=== PATIENT | female | born 1930 | race Caucasian/White ===

== ENCOUNTER 2021-09-30 13:30 | Inpatient (IN) ==
--- NOTE | 2021-09-30 14:03 | ED Telehealth Note ---
Telehealth Telehealth Options: 2-way audio and video After establishing a telemedicine visit, patient was: Patient was verified with two unique identifiers Total Time Spent (minutes): 6 Impression & Plan Vomiting Note/Exam/Outcome Date of Service September 30, 2021 ED Telehealth Outcome Visit Completed ED Visit Note Chief Complaint: Vomiting HPI: This patient is an 89-year-old female that was evaluated via telehealth for several episodes of vomiting that started approximately at 4 AM this morning. The history was taken from the patient's daughter. The patient was not visually present on the telehealth visit. The patient's daughter reports that she has vomited 4 times. She reportedly has a history of partial bowel obstruction. She had a colostomy approximately 15 years ago. They are unsure if she has been having bowel movements, however she did notice a small amount of liquid stool in her depends this morning. She has not been complaining of abdominal pain. There has been no reported fever. The patient reportedly had a small bowel obstruction approximately 3 months ago. ROS: 10 system review performed and negative unless noted in HPI or below Past medical history: See below Surgical history: See below Social history: See below Physical Exam: Physical exam was not able to be performed as the patient's daughter gave her history. COURSE: History was taken via telehealth from the patient's daughter. It was advised that the patient be evaluated in the emergency department for further treatment. They agreed to come to the emergency department for further evaluation. MDM: Differential diagnosis: Partial small bowel obstruction, bowel obstruction, pancreatitis, gallbladder pathology, viral GI illness, bacterial GI illness, among others were entertained This patient is an 89-year-old female that was evaluated per her daughter through telehealth. She has reportedly been vomiting. She does have a history of partial bowel obstruction. I was concerned about a repeat bowel obstruction in addition to other etiologies. The patient also could possibly be dehydrated. For these reasons, it was advised that she come to the emergency department for evaluation. The patient's family was in agreement. DIAGNOSIS: Vomiting Past Med/Surg History Medical History Arthritis Hyperlipidemia Hypertension Surgical History S/P knee replacement S/P shoulder surgery S/P small bowel resection from SBO in approx. 1999 Family History Other No significant family history Denies family history of Colon cancer Ovarian cancer Prostate cancer Myocardial infarction Breast cancer Social History Smoking Status: Never smoker Second Hand Exposure: No; Hx Alcohol Use: No Hx Substance Use: No Preferred Language: Telugu Communication Ability: Effective Visual Impairment: Limited Hearing Ability: Use of Hearing Aid Pipeline Superintendent Required: No Beliefs That Will Affect Care: None marital status: / Current Living Situation: Family Current Living Situation Comment: Lives with children current occupational status: retired How many Children do You have: 1 Other Information That Helps Us Care for You: No Feels Safe at Home: Yes Dental Care, Regularly: Yes Physical Activity Frequency: Other Physical Activity Frequency Comment: Limited by physical condition Seatbelt Use: sometimes Assistive Devices: Cane and Walker Allergies Allergies Allergy/AdvReac Type Severity Reaction Status Date / Time No Known Drug Allergies Allergy Verified 07/25/21 13:41 Home Meds Previous Rx's Medication Instructions Recorded metoprolol tartrate 25 mg tablet 25 mg PO DAILY #90 tab 03/29/21 Results & Data (ED) Laboratory Data Result diagrams: 10/01/21 05:49 10/01/21 05:49 Discharge Plan Visit Data Chief Complaint: GI Assessment Stated Complaint: VOMITING, LOOSING APETITE, NO FULL BOWEL MOVE. ED Provider: Donald Glaser ED Midlevel Provider: Flakita Fernandez Discharge Problem: Vomiting Patient Disposition: Home - Self-Care Discharge Instructions Interventions: ED Discharge Assessment Last Done: 09/30/21 21:54
[2021-09-30] MEDS ORDERED: SODIUM CHLORIDE 0.9% 1000ML 250 ML IV ONE (15:19)
[2021-09-30] MEDS ORDERED: ONDANSETRON INJ 2 MG/ML 2 ML VIAL IV STA (15:20)
[2021-09-30 16:28] LABS: Basophils # (auto) 0.01 K/uL (0-0.2); Basophils % (auto) 0.2 %; Eosinophils # (auto) 0.03 K/uL (0-0.5); Eosinophils % (auto) 0.5 %; Hematocrit (blood only) 41.8 % (37-47); Hemoglobin 13.7 g/dL (12.0-16.0); Lymphocytes # (auto) 0.48 K/uL (1.2-3.4); Lymphocytes % (auto) 8.5 %; Mean Corpuscular Hemoglobin 31.1 pg (25-34); Mean Corpuscular Hgb Conc 32.8 g/dL (32-36); Mean Corpuscular Volume 94.8 fL (80-100); Mean Platelet Volume 11.1 fL (7.4-10.4); Monocytes # (auto) 0.38 K/uL (0.11-0.59); Monocytes % (auto) 6.7 %; Neutrophils # (auto) 4.74 K/uL (1.4-6.5); Neutrophils % (auto) 84.1 %; Platelet Count 236 K/uL (130-400); RDW Coefficient of Variation 14.4 % (11.5-14.5); RDW Standard Deviation 50.1 fL (36.4-46.3); Red Blood Count 4.41 M/uL (4.2-5.4); White Blood Count 5.64 K/uL (4.8-10.8)
[2021-09-30 17:07] LABS: Alanine Aminotransferase 17 U/L (12-78); Albumin Level 4.1 gm/dl (3.4-5.0); Aspartate Aminotransferase 19 U/L (15-37); BUN Creatinine Ratio 28.2 (10-20); Blood Urea Nitrogen 23 mg/dl (7-18); Calcium 9.3 mg/dl (8.5-10.1); Carbon Dioxide 28 mmol/L (21-32); Chloride 102 mmol/L (98-107); Est GFR (African American) 74.6 ml/min; Est GFR (Non-African American) 64.4 ml/min; Glucose 135 mg/dl (70-99); Magnesium 2.4 mg/dl (1.8-2.4); Potassium 3.9 mmol/L (3.5-5.1); Sodium 141 mmol/L (136-145)
[2021-09-30 17:12] LABS: Albumin Globulin Ratio 1.2 (0.9-2); Alkaline Phosphatase 107 U/L (45-117); Globulin 3.5 gm/dl (2.5-4.0); Phosphorus 3.8 mg/dl (2.5-4.9); Total Protein 7.6 gm/dl (6.4-8.2); Troponin I < 0.015 ng/ml (0-0.045)
[2021-09-30] MEDS ORDERED: OPTIRAY 320 100ml IV ONE (17:44)
--- NOTE | 2021-09-30 18:08 | CT Scan Report ---
CT abd pelvis IV con only CLINICAL HISTORY: vomiting hx obstruction TECHNIQUE: Helical axial images of the abdomen and pelvis were obtained and displayed. Automated dose lowering techniques and/or adjustment according to patient size were utilized for this exam. This e xam was performed with intravenous contrast. COMPARISON: None available at the time of this dictation. FINDINGS: Lower chest: Cardiomegaly is partially visualized. Liver: Unremarkable. No focal lesions are seen. Gallbladder and biliary tree: The gallbladder is contracted. No intra- or extrahepatic biliary ductal dilation. Pancreas: Unremarkable, no focal lesions. Spleen: Unremarkable. Adrenals: Unremarkable. Kidneys and ureters: There are simple cysts in the right kidney. Bladder: Unremarkable. 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 There is a heterogeneous mixed density les ion in the anterior aspect of the uterus measuring 8.0 x 6.4 cm containing components of fat and soft tissue density. Bowel: Prominent rectal stool burden is noted. Diverticulosis is seen without evidence of diverticuli tis. There are multiple distended loops of small bowel measuring up to 37 mm in diameter. No proximal transition point is seen, there is a distal transition into collapsed small bowel. Lymph nodes Retroperitoneal: Unremarkable. Mesenteric: Unremarkable. Pelvic: Unremarkable. Peritoneum: Normal Vessels: Atherosclerotic calcifications are seen. Abdominal wall: Unremarkable. Bones: Multilevel loss of height is seen in the lumbar spine. Degenerative changes are noted througho ut the visualized skeleton. IMPRESSION: 1. Small bowel obstruction in the jejunum, no evidence of closed loop obstruction. 2. Large uterine mass with fat may represent a lipoma or leiomyoma. 3. Incidental findings as above. ACT 112: Negative or not required by law. Electronically signed by: Kofi Maki M.D. 09/30/2021 6:06 PM
[2021-09-30] MEDS ORDERED: POTASSIUM CHLORIDE 10 MEQ in D5W AND 1/2NSS 1,000 ML IV SCH (19:00)
--- NOTE | 2021-09-30 19:10 | Emergency Department Note ---
ED Visit Note I have personally evaluated this patient examined her and reviewed the pertinent labs and data. I have discussed the case with Flakita Fernandez, the physician faculty i on call medical assistant and agree with the plan. Please refer to the PA note. This patient has a history of significant bowel surgery due to an infection that required a colostomy reversal, comes in after having vomiting. She did receive IV fluids as well as antiemetics and looks a lot better. Her blood work is not significantly abnormal. On CT she has a small bowel obstruction. When I go in and examine her after the medication she appears very comfortable and is not actively vomiting therefore at this point I do not believe needs an NG tube although she starts vomiting she may. I do think she needs to be admitted for bowel rest and hydration. On my exam her abdomen is without peritonitis and nontender but may be mildly distended at this point. I talked to both the patient and her daughter who is at the bedside. .
[2021-09-30] MEDS ORDERED: ONDANSETRON INJ 2 MG/ML 2 ML VIAL ONE (19:39)
--- NOTE | 2021-09-30 20:00 | History & Physical Report ---
Date of Service September 30, 2021 Assessment & Plan (1) SBO (small bowel obstruction): Plan: 89-year-old female with a past medical history of hyperlipidemia, arthritis, hypertension and possible history of small bowel obstruction admitted for management of jejunal SBO. Small bowel obstruction N.p.o. General surgery consult As evidenced on CT abdomen pelvis IV Zofran for nausea, will hold off on NG tube placement at this time. If worsening nausea will place NG tube. Hypertension Metoprolol p.o. held while n.p.o. IV metoprolol as needed for systolic blood pressure > 180 with heart rate > 60 or diastolic > 100 with heart rate > 60. Alert physician if using multiple doses. Heart murmur Per outpatient visit notes, patient deferred echocardiogram in August 07 We will order TTE in the a.m. for evaluation No signs or symptoms of CHF at this time. DVT ppx: SCDs FEN/GI: NPO Bowel regimen: N/A with SBO Code Status: DNR/DNI Dispo: med/surg. COVID19 PCR pending (2) Hypertension: (3) Cardiac murmur, unspecified: History of Present Illness Primary Care Provider: Serjio Bhakta DO Pleasantly demented 89-year-old female who was brought to the emergency department by her daughter for abdominal pain and nausea that started earlier today. History somewhat limited by patient's dementia and failure number not at bedside. Yvette states that she started having abdominal pain earlier today and has not tried anything to make it better. She states she has not been able to go to the bathroom. She does feel somewhat nauseous. She denies any fevers, chills, dysuria, frequency of urination, chest pain, respiratory difficulty. She is oriented to person and place (hospital, did not know city). Per nursing, patient has had multiple bouts of nausea and brownbilious emesis in the emergency department. Has been better after receiving Zofran. ER course significant for CT abdomen pelvis showing small bowel obstruction. Currently has a liter of normal saline running at 80 mL/h. Allergies Allergy/AdvReac Type Severity Reaction Status Date / Time No Known Drug Allergies Allergy Unknown Verified 09/30/21 15:18 Home Medications Medication Instructions Recorded Confirmed Type metoprolol tartrate 25 mg tablet 25 mg PO DAILY #90 tab 03/29/21 09/30/21 Rx Past Med/Surg History Medical History Arthritis Hyperlipidemia Hypertension Surgical History S/P knee replacement S/P shoulder surgery S/P small bowel resection from SBO in approx. 2000 Family History Other No significant family history Denies family history of Colon cancer Ovarian cancer Prostate cancer Myocardial infarction Breast cancer Social History Smoking Status: Never smoker Second Hand Exposure: No; Hx Alcohol Use: No Hx Substance Use: No Preferred Language: British Communication Ability: Effective Visual Impairment: Limited Hearing Ability: Use of Hearing Aid Lab Analyst Required: No Beliefs That Will Affect Care: None marital status: / Current Living Situation: Family Current Living Situation Comment: Lives with children current occupational status: retired How many Children do You have: 1 Other Information That Helps Us Care for You: No Feels Safe at Home: Yes Dental Care, Regularly: Yes Physical Activity Frequency: Other Physical Activity Frequency Comment: Limited by physical condition Seatbelt Use: sometimes Assistive Devices: Walker Review of Systems Constitutional: no fever, no chills, no body aches and no fatigue Respiratory: no cough and no dyspnea Cardiovascular: no chest pain, no dyspnea and no edema Gastrointestinal: + abdominal pain, + nausea, + vomiting and + constipation; no diarrhea/loose stools Physical Exam Constitutional: cooperative; no acute distress and not ill appearing Eyes: PERRL, conjunctivae normal, anicteric sclerae Neck: normal visual inspection Respiratory: normal respiratory effort and able to speak in complete sentences; no respiratory distress, no labored breathing, no retractions, no cough and no audible wheezes Auscultation: lungs clear to auscultation bilaterally; no crackles, no rales, no rhonchi and no wheezes Cardiovascular: Rate/Rhythm: regular rate and regular rhythm Heart Sounds: normal S1, normal S2 and + murmur (Blowing harsh systolic murmur heard best at left lower sternal border); no gallop and no cardiac rub Extremities: normal capillary refill; no calf tenderness, no pedal edema and no edema Gastrointestinal (Abdomen): Inspection/Auscultation: + abdomen distended; + abdomen abnormal to inspection, + abnormal bowel sounds (No bowel sounds auscultated) and no abdominal edema Percussion/Palpation: + abdomen tender, + guarding (Involuntary guarding) and abdomen soft; abdomen not rigid and no abdominal mass Musculoskeletal: no cyanosis or clubbing, extremities motor strength 5/5 Skin: no rashes, warm and dry Neurologic: PERRL, EOMI, accommodation nl, no face palsy, no dysarthria Speech / Cognition: normal speech Motor/Sensory: no tremor Psychiatric: Orientation: alert, oriented to person and oriented to place; + not oriented to time Results & Data Results & Data ([facility]) Vital Signs (Past 12 Hours) Vital Signs Temp Pulse Pulse Resp BP BP Pulse Ox 09/30/21 18:27 90 17 145/70 H 95 09/30/21 17:45 87 16 145/70 H 99 09/30/21 14:51 36.3 C L 112 H 18 144/72 H 96 Laboratory Results Laboratory Results WBC 5.64 K/uL (4.8-10.8) 09/30/21 16:15 RBC 4.41 M/uL (4.2-5.4) 09/30/21 16:15 Hgb 13.7 g/dL (12.0-16.0) 09/30/21 16:15 Hct 41.8 % (37-47) 09/30/21 16:15 MCV 94.8 fL (80-100) 09/30/21 16:15 MCH 31.1 pg (25-34) 09/30/21 16:15 MCHC 32.8 g/dL (32-36) 09/30/21 16:15 RDW Std Deviation 50.1 fL (36.4-46.3) H 09/30/21 16:15 RDW Coeff of Jany 14.4 % (11.5-14.5) 09/30/21 16:15 Plt Count 236 K/uL (130-400) 09/30/21 16:15 MPV 11.1 fL (7.4-10.4) H 09/30/21 16:15 Immature Gran % (Auto) 0.0 % 09/30/21 16:15 Neut % (Auto) 84.1 % 09/30/21 16:15 Lymph % (Auto) 8.5 % 09/30/21 16:15 [place] % (Auto) 6.7 % 09/30/21 16:15 Eos % (Auto) 0.5 % 09/30/21 16:15 Baso % (Auto) 0.2 % 09/30/21 16:15 Neut # (Auto) 4.74 K/uL (1.4-6.5) 09/30/21 16:15 Lymph # (Auto) 0.48 K/uL (1.2-3.4) L 09/30/21 16:15 [place] # (Auto) 0.38 K/uL (0.11-0.59) 09/30/21 16:15 Eos # (Auto) 0.03 K/uL (0-0.5) 09/30/21 16:15 Baso # (Auto) 0.01 K/uL (0-0.2) 09/30/21 16:15 Immature Gran # (Auto) 0.00 K/uL (0.00-0.02) 09/30/21 16:15 Sodium 141 mmol/L (136-145) 09/30/21 16:15 Potassium 3.9 mmol/L (3.5-5.1) 09/30/21 16:15 Chloride 102 mmol/L (98-107) 09/30/21 16:15 Carbon Dioxide 28 mmol/L (21-32) 09/30/21 16:15 Anion Gap 11.0 (3-11) 09/30/21 16:15 BUN 23 mg/dl (7-18) H 09/30/21 16:15 Creatinine 0.81 mg/dl (0.6-1.2) 09/30/21 16:15 Est Cr Clr Drug Dosing Not Reportable 09/30/21 16:15 Est GFR ( Amer) 74.6 ml/min 09/30/21 16:15 Est GFR (Non-Af Amer) 64.4 ml/min 09/30/21 16:15 BUN/Creatinine Ratio 28.2 (10-20) H 09/30/21 16:15 Glucose 135 mg/dl (70-99) H 09/30/21 16:15 Lactate 1.2 mmol/L (0.4-2.0) 09/30/21 16:15 Calcium 9.3 mg/dl (8.5-10.1) 09/30/21 16:15 Phosphorus 3.8 mg/dl (2.5-4.9) 09/30/21 16:15 Magnesium 2.4 mg/dl (1.8-2.4) 09/30/21 16:15 Total Bilirubin 1.0 mg/dl (0.2-1) 09/30/21 16:15 AST 19 U/L (15-37) 09/30/21 16:15 ALT 17 U/L (12-78) 09/30/21 16:15 Alkaline Phosphatase 107 U/L (45-117) 09/30/21 16:15 Troponin I < 0.015 ng/ml (0-0.045) 09/30/21 16:15 Total Protein 7.6 gm/dl (6.4-8.2) 09/30/21 16:15 Albumin 4.1 gm/dl (3.4-5.0) 09/30/21 16:15 Globulin 3.5 gm/dl (2.5-4.0) 09/30/21 16:15 Albumin/Globulin Ratio 1.2 (0.9-2) 09/30/21 16:15 COVID-19 Eval Order Covid19 at [facility] 09/30/21 Unknown Impressions Abdomen/Pelvis CT 09/30/21 15:19 CT abd pelvis IV con only CLINICAL HISTORY: vomiting hx obstruction TECHNIQUE: Helical axial images of the abdomen and pelvis were obtained and displayed. Automated dose lowering techniques and/or adjustment according to patient size were utilized for this exam. This exam was performed with intravenous contrast. COMPARISON: None available at the time of this dictation. FINDINGS: Lower chest: Cardiomegaly is partially visualized. Liver: Unremarkable. No focal lesions are seen. Gallbladder and biliary tree: The gallbladder is contracted. No intra- or extrahepatic biliary ductal dilation. Pancreas: Unremarkable, no focal lesions. Spleen: Unremarkable. Adrenals: Unremarkable. Kidneys and ureters: There are simple cysts in the right kidney. Bladder: Unremarkable. 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 There is a heterogeneous mixed density lesion in the anterior aspect of the uterus measuring 8.0 x 6.4 cm containing components of fat and soft tissue density. Bowel: Prominent rectal stool burden is noted. Diverticulosis is seen without evidence of diverticulitis. There are multiple distended loops of small bowel measuring up to 37 mm in diameter. No proximal transition point is seen, there is a distal transition into collapsed small bowel. Lymph nodes Retroperitoneal: Unremarkable. Mesenteric: Unremarkable. Pelvic: Unremarkable. Peritoneum: Normal Vessels: Atherosclerotic calcifications are seen. Abdominal wall: Unremarkable. Bones: Multilevel loss of height is seen in the lumbar spine. Degenerative changes are noted throughout the visualized skeleton. IMPRESSION: 1. Small bowel obstruction in the jejunum, no evidence of closed loop obstruction. 2. Large uterine mass with fat may represent a lipoma or leiomyoma. 3. Incidental findings as above. ACT 112: Negative or not required by law. Electronically signed by: Kofi Maki M.D. 09/30/2021 6:06 PM Supervising Physician Co-Signing Physician Notes Attending addendum: I have physically seen this patient, have supervised the medical residents activities, and agree with the H&P unless as otherwise noted. Assessment and Plan: Small bowel obstruction- N.p.o. NSS + KCl 20 mEq at 100 mils per hour Zofran 4 mg IV every 6 hours as needed Famotidine 20 mg IV every 12 hours Zosyn 4.5 g IV every 8 hours Acetaminophen 1 g IV every 8 hours as needed mild pain or fever Hypertension- Hold oral metoprolol Lopressor 5 mg IV every 4 hours as needed as noted Remaining orders and notations as noted Resident Activity Tracking Resident Involvement: Resident Care Provided Care Provided: Adult Hospital Medicine
[2021-09-30] MEDS: SODIUM CHLORIDE 0.9% 1000ML 1,000 ML IV SCH (22:47)
[2021-09-30] MEDS ORDERED: ONDANSETRON INJ 2 MG/ML 2 ML VIAL IV PRN (22:50)
[2021-09-30] MEDS ORDERED: ACETAMINOPHEN 325 MG TAB PO PRN (22:50)
[2021-09-30 23:29] LABS: Appearance Urine Clear (Clear); Bacteria Urine Automated Negative (Negative); Bilirubin Urine Negative (Negative); Blood Urine 2+ (Negative); Color Urine Yellow; Glucose Urine UA Negative (Negative); Ketones Urine 1+ (Negative); Leukocyte Esterase Urine Negative (Negative); Nitrite Urine Negative (Negative); Protein Urine Trace (Negative); Specific Gravity Urine > 1.045 (1.000-1.030); Urobilinogen Urine Negative (Negative)
[2021-10-01 06:07] LABS: Basophils # (auto) 0.01 K/uL (0-0.2); Basophils % (auto) 0.2 %; Eosinophils # (auto) 0.03 K/uL (0-0.5); Eosinophils % (auto) 0.5 %; Hematocrit (blood only) 36.9 % (37-47); Hemoglobin 11.7 g/dL (12.0-16.0); Lymphocytes % (auto) 10.5 %; Mean Corpuscular Hemoglobin 30.5 pg (25-34); Mean Corpuscular Hgb Conc 31.7 g/dL (32-36); Mean Corpuscular Volume 96.1 fL (80-100); Mean Platelet Volume 10.6 fL (7.4-10.4); Monocytes # (auto) 0.49 K/uL (0.11-0.59); Monocytes % (auto) 8.6 %; Neutrophils # (auto) 4.59 K/uL (1.4-6.5); Neutrophils % (auto) 80.2 %; Platelet Count 210 K/uL (130-400); RDW Coefficient of Variation 14.6 % (11.5-14.5); RDW Standard Deviation 51.3 fL (36.4-46.3); Red Blood Count 3.84 M/uL (4.2-5.4); White Blood Count 5.72 K/uL (4.8-10.8)
[2021-10-01 06:36] LABS: BUN Creatinine Ratio 23.1 (10-20); Calcium 8.7 mg/dl (8.5-10.1); Est GFR (African American) 73.5 ml/min; Est GFR (Non-African American) 63.4 ml/min; Potassium 3.4 mmol/L (3.5-5.1)
--- NOTE | 2021-10-01 07:11 | Hospitalist Progress Note ---
Date of Service October 01, 2021 Assessment & Plan (1) SBO (small bowel obstruction): Plan: 89-year-old female with a past medical history of hyperlipidemia, arthritis, hypertension and possible history of small bowel obstruction admitted for management of jejunal SBO. Small bowel obstruction N.p.o. General surgery consult As evidenced on CT abdomen pelvis IV Zofran for nausea, will hold off on NG tube placement at this time. If worsening nausea will place NG tube. Hypertension Metoprolol p.o. held while n.p.o. IV metoprolol as needed for systolic blood pressure > 180 with heart rate > 60 or diastolic > 100 with heart rate > 60. Alert physician if using multiple doses. Heart murmur Per outpatient visit notes, patient deferred echocardiogram in August 07 We will order TTE in the a.m. for evaluation No signs or symptoms of CHF at this time. DVT ppx: SCDs FEN/GI: NPO Bowel regimen: N/A with SBO Code Status: DNR/DNI Dispo: med/surg. COVID19 PCR pending (2) Hypertension: (3) Cardiac murmur, unspecified: Admission and Anticipated Discharge Date Admission Date: September 30, 2021 Subjective Does not remember last BM. Abd pain has resolved completely. No n/v. Denies abd surgeries. Lives at home. Was at baseline until yesterday. Review of Systems Review of Systems: All systems reviewed & are unremarkable except as noted in HPI & below Constitutional: Denies fever, chills Eyes: Denies blurry vision, vision changes ENT: Denies sore throat, sinus pain Cardiovascular: Denies chest pain, palpitations Respiratory: Denies shortness of breath Gastrointestinal: Denies abdominal pain, nausea, vomiting, constipation, diarrhea Genitourinary: Denies urinary symptoms including dysuria Musculoskeletal: Denies weakness, muscle aches/pain, joint aches/pain Neurological: Denies headache, numbness, tingling, focal weakness Physical Exam Physical Exam: General: A&O to person and place, but not context. NAD. Cooperative. HEENT: Atraumatic, normocephalic. EOMI Pulm: Trace insp crackles at bases, worse on L. Otherwise CTAB. No respiratory distress. Cardiac: RRR, -mrg. Radial pulses intact and symmetrical. Abdominal: Nontender, nondistended, soft. + bruit heard at abd midline. Integ: R arm wrapped in soft dressing. Denies fall/injury. Results & Data Results & Data ([facility]) Vital Signs (Past 12 Hours) Vital Signs Intermittent HR to 90s. afeb. BPs appropriate. 94 on RA. Temp Pulse Pulse Resp BP Pulse Ox 09/30/21 22:19 36.7 C 96 H 16 133/74 94 09/30/21 21:54 86 19 94 09/30/21 20:01 36.7 C 92 H 18 137/72 96 Temp Pulse Resp BP Pulse Ox 37.0 C 99 H 16 119/64 93 10/01/21 07:17 10/01/21 07:17 10/01/21 07:17 10/01/21 07:17 10/01/21 07:17 Laboratory Results no leukocytosis. Hb 13.7->11.7. K 3.4 Na 141. Cr 0.82. UA at admission sg >1.045. trace protein. 1+ ketone. 2+ blood. 10-20 epi cells. 09/30 ct abd. 1. Small bowel obstruction in the jejunum, no evidence of closed loop obstruction. 2. Large uterine mass with fat may represent a lipoma or leiomyoma. 09/30 ecg 10/01/21 05:49 10/01/21 05:49 Diagnostic Findings Abdomen/Pelvis CT 09/30/21 15:19 CT abd pelvis IV con only CLINICAL HISTORY: vomiting hx obstruction TECHNIQUE: Helical axial images of the abdomen and pelvis were obtained and displayed. Automated dose lowering techniques and/or adjustment according to patient size were utilized for this exam. This exam was performed with intravenous contrast. COMPARISON: None available at the time of this dictation. FINDINGS: Lower chest: Cardiomegaly is partially visualized. Liver: Unremarkable. No focal lesions are seen. Gallbladder and biliary tree: The gallbladder is contracted. No intra- or extrahepatic biliary ductal dilation. Pancreas: Unremarkable, no focal lesions. Spleen: Unremarkable. Adrenals: Unremarkable. Kidneys and ureters: There are simple cysts in the right kidney. Bladder: Unremarkable. 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 There is a heterogeneous mixed density lesion in the anterior aspect of the uterus measuring 8.0 x 6.4 cm containing components of fat and soft tissue density. Bowel: Prominent rectal stool burden is noted. Diverticulosis is seen without evidence of diverticulitis. There are multiple distended loops of small bowel measuring up to 37 mm in diameter. No proximal transition point is seen, there is a distal transition into collapsed small bowel. Lymph nodes Retroperitoneal: Unremarkable. Mesenteric: Unremarkable. Pelvic: Unremarkable. Peritoneum: Normal Vessels: Atherosclerotic calcifications are seen. Abdominal wall: Unremarkable. Bones: Multilevel loss of height is seen in the lumbar spine. Degenerative changes are noted throughout the visualized skeleton. IMPRESSION: 1. Small bowel obstruction in the jejunum, no evidence of closed loop obstruction. 2. Large uterine mass with fat may represent a lipoma or leiomyoma. 3. Incidental findings as above. ACT 112: Negative or not required by law. Electronically signed by: Kofi Maki M.D. 09/30/2021 6:06 PM KUB X-Ray 10/01/21 13:32 KUB CLINICAL HISTORY: Small bowel obstruction. FINDINGS: An AP supine abdominal radiograph is correlated with abdominal CT dated 09/30/2021. There is no radiographic evidence of bowel obstruction. Mild fecal retention is seen throughout the colon. No evidence of intraperitoneal free air is seen on this supine image. Excreted IV contrast fills the bladder. 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 The skeletal structures are osteopenic. IMPRESSION: There is no radiographic evidence of bowel obstruction. The obstruction seen by CT is not apparent on x-ray. Electronically signed by: Manuelito Sarabia M.D. 10/01/2021 2:44 PM Resident Activity Tracking Resident Involvement: Resident Care Provided Care Provided: Adult [facility]
[2021-10-01] MEDS: METOPROLOL TARTRATE 25 MG TAB PO SCH (09:48)
[2021-10-01] MEDS: SODIUM CHLORIDE 0.9% 1000ML 1,000 ML IV SCH (12:15)
--- NOTE | 2021-10-01 12:21 | Surgery Consultation ---
Date of Consultation October 01, 2021 Assessment & Plan (1) SBO (small bowel obstruction): 89 year-old female with SBO at level of jejunum on CT scan. 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 Likely SBO secondary to adhesions. - abdomen is soft, nondistended, nontender - no leukocytosis Plan: Continue conservative management: NPO for bowel rest, IV fluids, pain management as needed continue medical management will follow along Dr. Bhakta has seen and examined pt, agrees with above. History of Present Illness Reason for Consultation: SBO Requesting Physician: Nirmala Schaffer MD Attending Physician: Nirmala Schaffer MD History of Present Illness Yvette is a 89 year-old female who presented to emergency department yesterday with complaint of abdominal pain with associated vomiting. History is limited given dementia and no family is present in room. History obtained from chart. She has a history of cardiac murmur, hypertension, arthritis, and hyperlipidemia. She does have a midline laparotomy scar from possible small b owel resection in 1999. Per record she had nausea and brown-bilious emesis in the ED. CT scan showed dilated small bowel at jejunum. No leukocytosis and lactic acid normal at 1.2 Yvette states she is feeling well. Denies of any nausea, vomiting, or abdominal pain. Not passing any gas or bowel movements. Allergies Allergy/AdvReac Type Severity Reaction Status Date / Time No Known Drug Allergies Allergy Unknown Verified 09/30/21 15:18 Home Medications Medication Instructions Recorded Confirmed Type metoprolol tartrate 25 mg tablet 25 mg PO DAILY #90 tab 03/29/21 09/30/21 Rx Patient History Medical History Arthritis Hyperlipidemia Hypertension Surgical History S/P knee replacement S/P shoulder surgery S/P small bowel resection from SBO in approx. 1999 Family History Other No significant family history Denies family history of Colon cancer Ovarian cancer Prostate cancer Myocardial infarction Breast cancer Social History Smoking Status: Never smoker Second Hand Exposure: No; Hx Alcohol Use: No Hx Substance Use: No Preferred Language: Mauritanian Communication Ability: Effective Visual Impairment: Limited Hearing Ability: Use of Hearing Aid Youth Specialist Required: No Beliefs That Will Affect Care: None marital status: / Current Living Situation: Family Current Living Situation Comment: Lives with children current occupational status: retired How many Children do You have: 1 Other Information That Helps Us Care for You: No Feels Safe at Home: Yes Dental Care, Regularly: Yes Physical Activity Frequency: Other Physical Activity Frequency Comment: Limited by physical condition Seatbelt Use: sometimes Assistive Devices: Cane and Walker Review of Systems Review of Systems: Unobtainable due to cognitive status Physical Exam Constitutional: WD/WN, vitals as above no acute distress and not ill appearing Respiratory: normal respiratory effort, lungs clear to auscultation Cardiovascular: Rate/Rhythm: regular rate and regular rhythm Heart Sounds: + murmur Gastrointestinal (Abdomen): Inspection/Auscultation: abdomen normal to inspection and + abdominal surgical scar (midline laparotomy scar); abdomen not distended Percussion/Palpation: abdomen soft; abdomen nontender, no guarding and abdomen not rigid Skin: no rashes, warm and dry Psychiatric: Orientation: alert Results & Data ([facility]) Vital Signs (Past 12 Hours) Vital Signs Temp Pulse Resp BP Pulse Ox 10/01/21 09:45 98 H 112/61 10/01/21 07:17 37.0 C 99 H 16 119/64 93 Laboratory Results 10/01/21 10/01/21 09/30/21 Range/Units 05:49 05:49 Unknown WBC 5.72 (4.8-10.8) K/uL RBC 3.84 L (4.2-5.4) M/uL Hgb 11.7 L (12.0-16.0) g/dL Hct 36.9 L (37-47) % MCV 96.1 (80-100) fL MCH 30.5 (25-34) pg MCHC 31.7 L (32-36) g/dL RDW Std Deviation 51.3 H (36.4-46.3) fL RDW Coeff of Jany 14.6 H (11.5-14.5) % Plt Count 210 (130-400) K/uL MPV 10.6 H (7.4-10.4) fL Immature Gran % (Auto) 0.0 % Neut % (Auto) 80.2 % Lymph % (Auto) 10.5 % [place] % (Auto) 8.6 % Eos % (Auto) 0.5 % Baso % (Auto) 0.2 % Neut # (Auto) 4.59 (1.4-6.5) K/uL Lymph # (Auto) 0.60 L (1.2-3.4) K/uL [place] # (Auto) 0.49 (0.11-0.59) K/uL Eos # (Auto) 0.03 (0-0.5) K/uL Baso # (Auto) 0.01 (0-0.2) K/uL Immature Gran # (Auto) 0.00 (0.00-0.02) K/uL Sodium 141 (136-145) mmol/L Potassium 3.4 L (3.5-5.1) mmol/L Chloride 108 H (98-107) mmol/L Carbon Dioxide 28 (21-32) mmol/L Anion Gap 5.0 (3-11) BUN 19 H (7-18) mg/dl Creatinine 0.82 (0.6-1.2) mg/dl Est Cr Clr Drug Dosing 30.0 Est GFR ( Amer) 73.5 ml/min Est GFR (Non-Af Amer) 63.4 ml/min BUN/Creatinine Ratio 23.1 H (10-20) Glucose 123 H (70-99) mg/dl Lactate (0.4-2.0) mmol/L Calcium 8.7 (8.5-10.1) mg/dl Phosphorus (2.5-4.9) mg/dl Magnesium (1.8-2.4) mg/dl Total Bilirubin (0.2-1) mg/dl AST (15-37) U/L ALT (12-78) U/L Alkaline Phosphatase (45-117) U/L Troponin I (0-0.045) ng/ml Total Protein (6.4-8.2) gm/dl Albumin (3.4-5.0) gm/dl Globulin (2.5-4.0) gm/dl Albumin/Globulin Ratio (0.9-2) Urine Color Urine Appearance (Clear) Urine pH (4.5-7.5) Ur Specific [place] (1.000-1.030) Urine Protein (Negative) Urine Glucose (UA) (Negative) Urine Ketones (Negative) Urine Blood (Negative) Urine Nitrite (Negative) Urine Bilirubin (Negative) Urine Urobilinogen (Negative) Ur Leukocyte Esterase (Negative) Urine WBC (Auto) (0-5) /hpf Urine RBC (Auto) (0-4) /hpf U Hyaline Cast (Auto) (0-5) /lpf U Epithel Cells (Auto) (0-5) /lpf Urine Bacteria (Auto) (Negative) COVID-19 Eval Order SARS-CoV-2 (PCR) NEGATIVE (Negative) 09/30/21 09/30/21 09/30/21 Range/Units Unknown 20:55 16:15 WBC (4.8-10.8) K/uL RBC (4.2-5.4) M/uL Hgb (12.0-16.0) g/dL Hct (37-47) % MCV (80-100) fL MCH (25-34) pg MCHC (32-36) g/dL RDW Std Deviation (36.4-46.3) fL RDW Coeff of Jany (11.5-14.5) % Plt Count (130-400) K/uL MPV (7.4-10.4) fL Immature Gran % (Auto) % Neut % (Auto) % Lymph % (Auto) % [place] % (Auto) % Eos % (Auto) % Baso % (Auto) % Neut # (Auto) (1.4-6.5) K/uL Lymph # (Auto) (1.2-3.4) K/uL [place] # (Auto) (0.11-0.59) K/uL Eos # (Auto) (0-0.5) K/uL Baso # (Auto) (0-0.2) K/uL Immature Gran # (Auto) (0.00-0.02) K/uL Sodium (136-145) mmol/L Potassium (3.5-5.1) mmol/L Chloride (98-107) mmol/L Carbon Dioxide (21-32) mmol/L Anion Gap (3-11) BUN (7-18) mg/dl Creatinine (0.6-1.2) mg/dl Est Cr Clr Drug Dosing Est GFR ( Amer) ml/min Est GFR (Non-Af Amer) ml/min BUN/Creatinine Ratio (10-20) Glucose (70-99) mg/dl Lactate 1.2 (0.4-2.0) mmol/L Calcium (8.5-10.1) mg/dl Phosphorus (2.5-4.9) mg/dl Magnesium (1.8-2.4) mg/dl Total Bilirubin (0.2-1) mg/dl AST (15-37) U/L ALT (12-78) U/L Alkaline Phosphatase (45-117) U/L Troponin I (0-0.045) ng/ml Total Protein (6.4-8.2) gm/dl Albumin (3.4-5.0) gm/dl Globulin (2.5-4.0) gm/dl Albumin/Globulin Ratio (0.9-2) Urine Color Yellow Urine Appearance Clear (Clear) Urine pH 7.0 (4.5-7.5) Ur Specific [place] > 1.045 H (1.000-1.030) Urine Protein Trace H (Negative) Urine Glucose (UA) Negative (Negative) Urine Ketones 1+ H (Negative) Urine Blood 2+ H (Negative) Urine Nitrite Negative (Negative) Urine Bilirubin Negative (Negative) Urine Urobilinogen Negative (Negative) Ur Leukocyte Esterase Negative (Negative) Urine WBC (Auto) 1-5 (0-5) /hpf Urine RBC (Auto) 10-30 H (0-4) /hpf U Hyaline Cast (Auto) 1-5 (0-5) /lpf U Epithel Cells (Auto) 10-20 H (0-5) /lpf Urine Bacteria (Auto) Negative (Negative) COVID-19 Eval Order Covid19 at [facility] SARS-CoV-2 (PCR) (Negative) 09/30/21 09/30/21 Range/Units 16:15 16:15 WBC 5.64 (4.8-10.8) K/uL RBC 4.41 (4.2-5.4) M/uL Hgb 13.7 (12.0-16.0) g/dL Hct 41.8 (37-47) % MCV 94.8 (80-100) fL MCH 31.1 (25-34) pg MCHC 32.8 (32-36) g/dL RDW Std Deviation 50.1 H (36.4-46.3) fL RDW Coeff of Jany 14.4 (11.5-14.5) % Plt Count 236 (130-400) K/uL MPV 11.1 H (7.4-10.4) fL Immature Gran % (Auto) 0.0 % Neut % (Auto) 84.1 % Lymph % (Auto) 8.5 % [place] % (Auto) 6.7 % Eos % (Auto) 0.5 % Baso % (Auto) 0.2 % Neut # (Auto) 4.74 (1.4-6.5) K/uL Lymph # (Auto) 0.48 L (1.2-3.4) K/uL [place] # (Auto) 0.38 (0.11-0.59) K/uL Eos # (Auto) 0.03 (0-0.5) K/uL Baso # (Auto) 0.01 (0-0.2) K/uL Immature Gran # (Auto) 0.00 (0.00-0.02) K/uL Sodium 141 (136-145) mmol/L Potassium 3.9 (3.5-5.1) mmol/L Chloride 102 (98-107) mmol/L Carbon Dioxide 28 (21-32) mmol/L Anion Gap 11.0 (3-11) BUN 23 H (7-18) mg/dl Creatinine 0.81 (0.6-1.2) mg/dl Est Cr Clr Drug Dosing Not Reportable Est GFR ( Amer) 74.6 ml/min Est GFR (Non-Af Amer) 64.4 ml/min BUN/Creatinine Ratio 28.2 H (10-20) Glucose 135 H (70-99) mg/dl Lactate (0.4-2.0) mmol/L Calcium 9.3 (8.5-10.1) mg/dl Phosphorus 3.8 (2.5-4.9) mg/dl Magnesium 2.4 (1.8-2.4) mg/dl Total Bilirubin 1.0 (0.2-1) mg/dl AST 19 (15-37) U/L ALT 17 (12-78) U/L Alkaline Phosphatase 107 (45-117) U/L Troponin I < 0.015 (0-0.045) ng/ml Total Protein 7.6 (6.4-8.2) gm/dl Albumin 4.1 (3.4-5.0) gm/dl Globulin 3.5 (2.5-4.0) gm/dl Albumin/Globulin Ratio 1.2 (0.9-2) Urine Color Urine Appearance (Clear) Urine pH (4.5-7.5) Ur Specific [place] (1.000-1.030) Urine Protein (Negative) Urine Glucose (UA) (Negative) Urine Ketones (Negative) Urine Blood (Negative) Urine Nitrite (Negative) Urine Bilirubin (Negative) Urine Urobilinogen (Negative) Ur Leukocyte Esterase (Negative) Urine WBC (Auto) (0-5) /hpf Urine RBC (Auto) (0-4) /hpf U Hyaline Cast (Auto) (0-5) /lpf U Epithel Cells (Auto) (0-5) /lpf Urine Bacteria (Auto) (Negative) COVID-19 Eval Order SARS-CoV-2 (PCR) (Negative) Diagnostic Findings CT abd pelvis IV con only CLINICAL HISTORY: vomiting hx obstruction TECHNIQUE: Helical axial images of the abdomen and pelvis were obtained and displayed. Automated dose lowering techniques and/or adjustment according to patient size were utilized for this exam. This exam was performed with intravenous contrast. COMPARISON: None available at the time of this dictation. FINDINGS: Lower chest: Cardiomegaly is partially visualized. Liver: Unremarkable. No focal lesions are seen. Gallbladder and biliary tree: The gallbladder is contracted. No intra- or extrahepatic biliary ductal dilation. Pancreas: Unremarkable, no focal lesions. Spleen: Unremarkable. Adrenals: Unremarkable. Kidneys and ureters: There are simple cysts in the right kidney. Bladder: Unremarkable. 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 There is a heterogeneous mixed density lesion in the anterior aspect of the uterus measuring 8.0 x 6.4 cm containing components of fat and soft tissue density. Bowel: Prominent rectal stool burden is noted. Diverticulosis is seen without evidence of diverticulitis. There are multiple distended loops of small bowel measuring up to 37 mm in diameter. No proximal transition point is seen, there is a distal transition into collapsed small bowel. Lymph nodes Retroperitoneal: Unremarkable. Mesenteric: Unremarkable. Pelvic: Unremarkable. Peritoneum: Normal Vessels: Atherosclerotic calcifications are seen. Abdominal wall: Unremarkable. Bones: Multilevel loss of height is seen in the lumbar spine. Degenerative changes are noted throughout the visualized skeleton. IMPRESSION: 1. Small bowel obstruction in the jejunum, no evidence of closed loop obstruction. 2. Large uterine mass with fat may represent a lipoma or leiomyoma. 3. Incidental findings as above.
--- NOTE | 2021-10-01 13:38 | XCELERA ---
[id number]
--- NOTE | 2021-10-01 14:45 | XRay Report ---
KUB CLINICAL HISTORY: Small bowel obstruction. FINDINGS: An AP supine abdominal radiograph is correlated with abdominal CT dated 09/30/2021. There i s no radiographic evidence of bowel obstruction. Mild fecal retention is seen throughout the colon. N o evidence of intraperitoneal free air is seen on this supine image. Excreted IV contrast fills the b ladder. 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 The skeletal structures are osteopenic. IMPRESSION: There is no radiographic evidence of bowel obstruction. The obstruction seen by CT is not apparent on x-ray. Electronically signed by: Manuelito Sarabia M.D. 10/01/2021 2:44 PM
--- NOTE | 2021-10-01 15:49 | Hospitalist Progress Note ---
Date of Service October 01, 2021 Assessment & Plan (1) SBO (small bowel obstruction): Plan: Yvette is a 89F with a history of small bowel resection who was admitied for jejunal SBO confirmed by CT scan. Her symptoms have resolved but she has not passed flactulance or had a bowel movement yet. SBO - Likely secondary to adhesions - Confirmed by CT scan on 09/30 - KUB XR on 10/01 demonstrated no SBO - abdomen is soft, nondistended, nontender - no leukocytosis - General surgery consulted, no surgical intervention at this time - Continue conservative management: NPO for bowel rest, IV fluids, pain management as needed IV Zofran for nausea, will hold off on NG tube placement at this time. If worsening nausea will place NG tube. - Monitor electrolytes and fluids Hypertension Continue metoprolol at home regimen Heart murmur Per outpatient visit notes, patient deferred echocardiogram in 07/2021 ECHO 10/01 demonstrated EF >70%, mild to moderate LVH, severe aortic stenosis, severe mitral regurgitation, with severe dilation of left atrium No signs or symptoms of CHF at this time. DVT ppx: SCDS FEN/GI: NPO Bowel regimen: N/A with SBO Code Status: DNR/DNI Dispo: med/surg (2) Cardiac murmur, unspecified: (3) Hypertension: Admission and Anticipated Discharge Date Admission Date: September 30, 2021 Supervising Physician Co-Signing Physician Notes Medical Student Supervision Note: I was personally present during medical student patient encounter and independently interviewed and examined the patient and verified the gil history and physical, reviewed labs and image studies, discussed the case with Isi Kincaid and agree with the findings and care plan. Subjective Yvette is a 89F with a history of small bowel resection 20 years ago who presented to the ED yesterday for abdominal pain and nausea; CT abd/pelvis found small bowel obstruction. She is unsure of her last bowel movement and has not had one or passed flatulance. Her abdominal pain, nausea, and emesis have resolved and she is feeling well. Review of Systems Constitutional: no fever, no chills, no body aches and no fatigue Respiratory: no cough and no dyspnea Cardiovascular: no chest pain, no dyspnea and no edema Gastrointestinal: no abdominal pain, no nausea, no vomiting and no diarrhea/loose stools Genitourinary: no dysuria Physical Exam Constitutional: cooperative; no acute distress and not ill appearing Eyes: + anicteric sclerae Respiratory: normal respiratory effort, lungs clear to auscultation Normal respiratory effort. Trace insp crackles at bases, worse on L, otherwise lungs clear to auscultation. Cardiovascular: Rate/Rhythm: regular rate and regular rhythm Heart Sounds: normal S1, normal S2 and + murmur (systolic, best heard at left lower sternal border); no gallop and no cardiac rub Extremities: no edema Gastrointestinal (Abdomen): Inspection/Auscultation: abdomen normal to inspection and + abdominal surgical scar (midline laparotomy scar); abdomen not distended, + abnormal bowel sounds (No bowel sounds auscultated) and no abdominal edema Percussion/Palpation: abdomen soft; abdomen nontender and no guarding + bruit heard at abd midline Skin: no rashes, warm and dry R arm wrapped in soft dressing Neurologic: Speech / Cognition: normal speech Psychiatric: Orientation: alert, oriented to person and oriented to place; + not oriented to time Results & Data Results & Data ([facility]) Vital Signs (Past 12 Hours) Vital Signs Temp Pulse Resp BP Pulse Ox 10/01/21 09:45 98 H 112/61 10/01/21 07:17 37.0 C 99 H 16 119/64 93 Laboratory Results 10/01/21 10/01/21 09/30/21 Range/Units 05:49 05:49 Unknown WBC 5.72 (4.8-10.8) K/uL RBC 3.84 L (4.2-5.4) M/uL Hgb 11.7 L (12.0-16.0) g/dL Hct 36.9 L (37-47) % MCV 96.1 (80-100) fL MCH 30.5 (25-34) pg MCHC 31.7 L (32-36) g/dL RDW Std Deviation 51.3 H (36.4-46.3) fL RDW Coeff of Jany 14.6 H (11.5-14.5) % Plt Count 210 (130-400) K/uL MPV 10.6 H (7.4-10.4) fL Immature Gran % (Auto) 0.0 % Neut % (Auto) 80.2 % Lymph % (Auto) 10.5 % [place] % (Auto) 8.6 % Eos % (Auto) 0.5 % Baso % (Auto) 0.2 % Neut # (Auto) 4.59 (1.4-6.5) K/uL Lymph # (Auto) 0.60 L (1.2-3.4) K/uL [place] # (Auto) 0.49 (0.11-0.59) K/uL Eos # (Auto) 0.03 (0-0.5) K/uL Baso # (Auto) 0.01 (0-0.2) K/uL Immature Gran # (Auto) 0.00 (0.00-0.02) K/uL Sodium 141 (136-145) mmol/L Potassium 3.4 L (3.5-5.1) mmol/L Chloride 108 H (98-107) mmol/L Carbon Dioxide 28 (21-32) mmol/L Anion Gap 5.0 (3-11) BUN 19 H (7-18) mg/dl Creatinine 0.82 (0.6-1.2) mg/dl Est Cr Clr Drug Dosing 30.0 Est GFR ( Amer) 73.5 ml/min Est GFR (Non-Af Amer) 63.4 ml/min BUN/Creatinine Ratio 23.1 H (10-20) Glucose 123 H (70-99) mg/dl Lactate (0.4-2.0) mmol/L Calcium 8.7 (8.5-10.1) mg/dl Phosphorus (2.5-4.9) mg/dl Magnesium (1.8-2.4) mg/dl Total Bilirubin (0.2-1) mg/dl AST (15-37) U/L ALT (12-78) U/L Alkaline Phosphatase (45-117) U/L Troponin I (0-0.045) ng/ml Total Protein (6.4-8.2) gm/dl Albumin (3.4-5.0) gm/dl Globulin (2.5-4.0) gm/dl Albumin/Globulin Ratio (0.9-2) Urine Color Urine Appearance (Clear) Urine pH (4.5-7.5) Ur Specific [place] (1.000-1.030) Urine Protein (Negative) Urine Glucose (UA) (Negative) Urine Ketones (Negative) Urine Blood (Negative) Urine Nitrite (Negative) Urine Bilirubin (Negative) Urine Urobilinogen (Negative) Ur Leukocyte Esterase (Negative) Urine WBC (Auto) (0-5) /hpf Urine RBC (Auto) (0-4) /hpf U Hyaline Cast (Auto) (0-5) /lpf U Epithel Cells (Auto) (0-5) /lpf Urine Bacteria (Auto) (Negative) COVID-19 Eval Order SARS-CoV-2 (PCR) NEGATIVE (Negative) 09/30/21 09/30/21 09/30/21 Range/Units Unknown 20:55 16:15 WBC (4.8-10.8) K/uL RBC (4.2-5.4) M/uL Hgb (12.0-16.0) g/dL Hct (37-47) % MCV (80-100) fL MCH (25-34) pg MCHC (32-36) g/dL RDW Std Deviation (36.4-46.3) fL RDW Coeff of Jany (11.5-14.5) % Plt Count (130-400) K/uL MPV (7.4-10.4) fL Immature Gran % (Auto) % Neut % (Auto) % Lymph % (Auto) % [place] % (Auto) % Eos % (Auto) % Baso % (Auto) % Neut # (Auto) (1.4-6.5) K/uL Lymph # (Auto) (1.2-3.4) K/uL [place] # (Auto) (0.11-0.59) K/uL Eos # (Auto) (0-0.5) K/uL Baso # (Auto) (0-0.2) K/uL Immature Gran # (Auto) (0.00-0.02) K/uL Sodium (136-145) mmol/L Potassium (3.5-5.1) mmol/L Chloride (98-107) mmol/L Carbon Dioxide (21-32) mmol/L Anion Gap (3-11) BUN (7-18) mg/dl Creatinine (0.6-1.2) mg/dl Est Cr Clr Drug Dosing Est GFR ( Amer) ml/min Est GFR (Non-Af Amer) ml/min BUN/Creatinine Ratio (10-20) Glucose (70-99) mg/dl Lactate 1.2 (0.4-2.0) mmol/L Calcium (8.5-10.1) mg/dl Phosphorus (2.5-4.9) mg/dl Magnesium (1.8-2.4) mg/dl Total Bilirubin (0.2-1) mg/dl AST (15-37) U/L ALT (12-78) U/L Alkaline Phosphatase (45-117) U/L Troponin I (0-0.045) ng/ml Total Protein (6.4-8.2) gm/dl Albumin (3.4-5.0) gm/dl Globulin (2.5-4.0) gm/dl Albumin/Globulin Ratio (0.9-2) Urine Color Yellow Urine Appearance Clear (Clear) Urine pH 7.0 (4.5-7.5) Ur Specific [place] > 1.045 H (1.000-1.030) Urine Protein Trace H (Negative) Urine Glucose (UA) Negative (Negative) Urine Ketones 1+ H (Negative) Urine Blood 2+ H (Negative) Urine Nitrite Negative (Negative) Urine Bilirubin Negative (Negative) Urine Urobilinogen Negative (Negative) Ur Leukocyte Esterase Negative (Negative) Urine WBC (Auto) 1-5 (0-5) /hpf Urine RBC (Auto) 10-30 H (0-4) /hpf U Hyaline Cast (Auto) 1-5 (0-5) /lpf U Epithel Cells (Auto) 10-20 H (0-5) /lpf Urine Bacteria (Auto) Negative (Negative) COVID-19 Eval Order Covid19 at [facility] SARS-CoV-2 (PCR) (Negative) 09/30/21 09/30/21 Range/Units 16:15 16:15 WBC 5.64 (4.8-10.8) K/uL RBC 4.41 (4.2-5.4) M/uL Hgb 13.7 (12.0-16.0) g/dL Hct 41.8 (37-47) % MCV 94.8 (80-100) fL MCH 31.1 (25-34) pg MCHC 32.8 (32-36) g/dL RDW Std Deviation 50.1 H (36.4-46.3) fL RDW Coeff of Jany 14.4 (11.5-14.5) % Plt Count 236 (130-400) K/uL MPV 11.1 H (7.4-10.4) fL Immature Gran % (Auto) 0.0 % Neut % (Auto) 84.1 % Lymph % (Auto) 8.5 % [place] % (Auto) 6.7 % Eos % (Auto) 0.5 % Baso % (Auto) 0.2 % Neut # (Auto) 4.74 (1.4-6.5) K/uL Lymph # (Auto) 0.48 L (1.2-3.4) K/uL [place] # (Auto) 0.38 (0.11-0.59) K/uL Eos # (Auto) 0.03 (0-0.5) K/uL Baso # (Auto) 0.01 (0-0.2) K/uL Immature Gran # (Auto) 0.00 (0.00-0.02) K/uL Sodium 141 (136-145) mmol/L Potassium 3.9 (3.5-5.1) mmol/L Chloride 102 (98-107) mmol/L Carbon Dioxide 28 (21-32) mmol/L Anion Gap 11.0 (3-11) BUN 23 H (7-18) mg/dl Creatinine 0.81 (0.6-1.2) mg/dl Est Cr Clr Drug Dosing Not Reportable Est GFR ( Amer) 74.6 ml/min Est GFR (Non-Af Amer) 64.4 ml/min BUN/Creatinine Ratio 28.2 H (10-20) Glucose 135 H (70-99) mg/dl Lactate (0.4-2.0) mmol/L Calcium 9.3 (8.5-10.1) mg/dl Phosphorus 3.8 (2.5-4.9) mg/dl Magnesium 2.4 (1.8-2.4) mg/dl Total Bilirubin 1.0 (0.2-1) mg/dl AST 19 (15-37) U/L ALT 17 (12-78) U/L Alkaline Phosphatase 107 (45-117) U/L Troponin I < 0.015 (0-0.045) ng/ml Total Protein 7.6 (6.4-8.2) gm/dl Albumin 4.1 (3.4-5.0) gm/dl Globulin 3.5 (2.5-4.0) gm/dl Albumin/Globulin Ratio 1.2 (0.9-2) Urine Color Urine Appearance (Clear) Urine pH (4.5-7.5) Ur Specific [place] (1.000-1.030) Urine Protein (Negative) Urine Glucose (UA) (Negative) Urine Ketones (Negative) Urine Blood (Negative) Urine Nitrite (Negative) Urine Bilirubin (Negative) Urine Urobilinogen (Negative) Ur Leukocyte Esterase (Negative) Urine WBC (Auto) (0-5) /hpf Urine RBC (Auto) (0-4) /hpf U Hyaline Cast (Auto) (0-5) /lpf U Epithel Cells (Auto) (0-5) /lpf Urine Bacteria (Auto) (Negative) COVID-19 Eval Order SARS-CoV-2 (PCR) (Negative) Diagnostic Findings CT abd/pelvis (08/30/21): 1.Small bowel obstruction in the jejunum, no evidence of closed loop obstruction. Multiple distended loops. No proximal transition. Distal transition into collapsed small bowel. 2. Large uterine mass with fat may represent a lipoma or leiomyoma. 3. Incidental findings as above. KUB XR (08/31/21): There is no radiographic evidence of bowel obstruction. The obstruction seen by CT is not apparent on x-ray.
--- NOTE | 2021-10-01 16:14 | Electrocardiogram Report ---
Test Reason : Blood Pressure : / mmHG Vent. Rate : 081 BPM Atrial Rate : 081 BPM P-R Int : 162 ms QRS Dur : 086 ms QT Int : 406 ms P-R-T Axes : -12 031 052 degrees QTc Int : 471 ms Normal sinus rhythm Normal ECG No previous ECGs available Confirmed by Martín Christensen ([id number]) on 10/01/2021 4:14:04 PM Referred By: REFERRED SELF Confirmed By:Martín Christensen
[2021-10-01] MEDS: POTASSIUM CHLORIDE / WTR 10 MEQ/100 ML PLCT IV SCH ×3 (20:38→22:29)
[2021-10-01] MEDS: ENOXAPARIN INJ 40 MG/0.4 ML SYR SQ SCH (20:40)
[2021-10-02 06:38] LABS: Basophils # (auto) 0.01 K/uL (0-0.2); Basophils % (auto) 0.1 %; Eosinophils # (auto) 0.24 K/uL (0-0.5); Eosinophils % (auto) 3.5 %; Hematocrit (blood only) 32.5 % (37-47); Hemoglobin 10.2 g/dL (12.0-16.0); Immature Granulocytes # (auto) 0.01 K/uL (0.00-0.02); Immature Granulocytes % (auto) 0.1 %; Lymphocytes # (auto) 1.53 K/uL (1.2-3.4); Lymphocytes % (auto) 22.4 %; Mean Corpuscular Hemoglobin 30.6 pg (25-34); Mean Corpuscular Hgb Conc 31.4 g/dL (32-36); Mean Corpuscular Volume 97.6 fL (80-100); Mean Platelet Volume 10.5 fL (7.4-10.4); Monocytes # (auto) 0.47 K/uL (0.11-0.59); Monocytes % (auto) 6.9 %; Neutrophils # (auto) 4.56 K/uL (1.4-6.5); Platelet Count 176 K/uL (130-400); RDW Standard Deviation 53.6 fL (36.4-46.3); Red Blood Count 3.33 M/uL (4.2-5.4); White Blood Count 6.82 K/uL (4.8-10.8)
[2021-10-02 07:21] LABS: BUN Creatinine Ratio 25.3 (10-20); Calcium 8.8 mg/dl (8.5-10.1); Creatinine Clr Calc Pharmacy 36.2 ml/min; Est GFR (African American) 89.9 ml/min; Est GFR (Non-African American) 77.6 ml/min
[2021-10-02] MEDS: SODIUM CHLORIDE 0.9% 1000ML 1,000 ML IV SCH ×2 (08:21→18:28)
--- NOTE | 2021-10-02 09:58 | Surgery Progress Note ---
Date of Service October 02, 2021 Assessment & Plan (1) SBO (small bowel obstruction): Plan: 89 year-old female with SBO at level of jejunum on CT scan. - KUB 10/01/21 showing no signs of obstruction, fecal retention in colon - abdomen is soft, nondistended, nontender - no leukocytosis Plan: No obstructive signs on KUB, abdomen is benign, no further nausea or emesis likely needs bowel regimen for fecal retention can advance diet our services signing off, please call with questions or concerns Dr. Bhakta has seen and examined pt, agrees with above. Admission and Anticipated Discharge Date Admission Date: September 30, 2021 Subjective feeling good no abdominal pain no nausea or vomiting not passing gas or bowel movement, unsure when her last bowel movement was. States she is usually regular with daily bowel movement (unsure accuracy given dementia) Physical Exam Constitutional: WD/WN, vitals as above no acute distress and not ill appearing Respiratory: normal respiratory effort; no respiratory distress, no labored breathing and no retractions Gastrointestinal (Abdomen): Inspection/Auscultation: abdomen normal to inspection; abdomen not distended Percussion/Palpation: abdomen soft; abdomen nontender, no guarding and abdomen not rigid Skin: no rashes, warm and dry Psychiatric: Orientation: alert and cooperative Results & Data ([facility]) Vital Signs (Past 12 Hours) Vital Signs Temp Pulse Resp BP Pulse Ox 10/02/21 07:11 36.7 C 72 16 135/61 93 10/01/21 22:29 37.3 C 79 16 118/60 93 Laboratory Results 10/02/21 10/02/21 Range/Units 06:20 06:20 WBC 6.82 (4.8-10.8) K/uL RBC 3.33 L (4.2-5.4) M/uL Hgb 10.2 L (12.0-16.0) g/dL Hct 32.5 L (37-47) % MCV 97.6 (80-100) fL MCH 30.6 (25-34) pg MCHC 31.4 L (32-36) g/dL RDW Std Deviation 53.6 H (36.4-46.3) fL RDW Coeff of Jany 15.0 H (11.5-14.5) % Plt Count 176 (130-400) K/uL MPV 10.5 H (7.4-10.4) fL Immature Gran % (Auto) 0.1 % Neut % (Auto) 67.0 % Lymph % (Auto) 22.4 % [place] % (Auto) 6.9 % Eos % (Auto) 3.5 % Baso % (Auto) 0.1 % Neut # (Auto) 4.56 (1.4-6.5) K/uL Lymph # (Auto) 1.53 (1.2-3.4) K/uL [place] # (Auto) 0.47 (0.11-0.59) K/uL Eos # (Auto) 0.24 (0-0.5) K/uL Baso # (Auto) 0.01 (0-0.2) K/uL Immature Gran # (Auto) 0.01 (0.00-0.02) K/uL Sodium 144 (136-145) mmol/L Potassium 4.0 D (3.5-5.1) mmol/L Chloride 114 H (98-107) mmol/L Carbon Dioxide 24 (21-32) mmol/L Anion Gap 6.0 (3-11) BUN 17 (7-18) mg/dl Creatinine 0.68 (0.6-1.2) mg/dl Est Cr Clr Drug Dosing 36.2 ml/min Est GFR ( Amer) 89.9 ml/min Est GFR (Non-Af Amer) 77.6 ml/min BUN/Creatinine Ratio 25.3 H (10-20) Glucose 72 (70-99) mg/dl Calcium 8.8 (8.5-10.1) mg/dl Diagnostic Findings KUB CLINICAL HISTORY: Small bowel obstruction. FINDINGS: An AP supine abdominal radiograph is correlated with abdominal CT dated 09/30/2021. There is no radiographic evidence of bowel obstruction. Mild fecal retention is seen throughout the colon. No evidence of intraperitoneal free air is seen on this supine image. Excreted IV contrast fills the bladder. 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 The skeletal structures are osteopenic. IMPRESSION: There is no radiographic evidence of bowel obstruction. The obstruction seen by CT is not apparent on x-ray.
--- NOTE | 2021-10-02 10:49 | Hospitalist Progress Note ---
Date of Service October 02, 2021 Assessment & Plan (1) SBO (small bowel obstruction): Plan: Yvette is a 89F with a history of small bowel resection who was admitted 09/30 for jejunal SBO confirmed by CT scan. KUB 10/01 showed no signs of obstruction. Her abdominal pain and nausea have resolved, but she has not passed flatulence or had a bowel movement yet. SBO - Likely secondary to adhesions - Confirmed by CT scan on 09/30 - KUB XR on 10/01 demonstrated no obstruction - Abdomen is soft, nondistended, nontender - No leukocytosis - General surgery consulted, no surgical intervention at this time - Advance diet to clear liquids - Add bowel regimen of miralax - Continue IV fluids, pain management as needed IV Zofran for nausea PRN - Monitor electrolytes and fluids Hypertension Continue metoprolol at home regimen Heart murmur Per outpatient visit notes, patient deferred echocardiogram in 07/2021 ECHO 10/01 demonstrated EF >70%, mild to moderate LVH, severe aortic stenosis, severe mitral regurgitation, with severe dilation of left atrium No signs or symptoms of CHF at this time. DVT ppx: Lovenox FEN/GI: Clears Bowel regimen: Miralax Code Status: DNR/DNI Dispo: med/surg (2) Cardiac murmur, unspecified: (3) Hypertension: Admission and Anticipated Discharge Date Admission Date: September 30, 2021 Supervising Physician Co-Signing Physician Notes Medical Student Supervision Note: I was personally present during medical student patient encounter and independently interviewed and examined the patient and verified the gil history and physical, reviewed labs and image studies, discussed the case with jose Kincaid and agree with the findings and care plan. Doing better - KUB with no obstruction. Noted fecal retention. clears started. continue IVF. bowel regimen. Subjective She is unsure of her last bowel movement; she has not had a bowel movement or passed flatulence since admission. Her abdominal pain, nausea, and emesis have resolved, and she is feeling well. Review of Systems Constitutional: no fever, no chills, no body aches and no fatigue Cardiovascular: no lightheadedness Gastrointestinal: no abdominal pain, no nausea, no vomiting and no diarrhea/loose stools Genitourinary: no dysuria Physical Exam Constitutional: cooperative; no acute distress and not ill appearing Eyes: + anicteric sclerae conjunctivae normal Respiratory: normal respiratory effort, lungs clear to auscultation normal respiratory effort and able to speak in complete sentences; no respiratory distress, no labored breathing, no retractions, no cough and no audible wheezes Cardiovascular: Rate/Rhythm: regular rate and regular rhythm Heart Sounds: normal S1, normal S2 and + murmur (systolic, best heard at left lower sternal border); no gallop and no cardiac rub Gastrointestinal (Abdomen): Inspection/Auscultation: abdomen normal to inspection and + abdominal surgical scar (midline laparotomy scar); abdomen not distended, + abnormal bowel sounds (hypoactive bowel sounds) and no abdominal edema Percussion/Palpation: abdomen soft; abdomen nontender and no guarding Skin: no rashes, warm and dry R arm wrapped in soft dressing Neurologic: Speech / Cognition: normal speech Psychiatric: Orientation: alert and oriented x 3 Results & Data Results & Data ([facility]) Vital Signs (Past 12 Hours) Vital Signs Temp Pulse Resp BP Pulse Ox 10/02/21 07:11 36.7 C 72 16 135/61 93 Laboratory Results 10/02/21 10/02/21 Range/Units 06:20 06:20 WBC 6.82 (4.8-10.8) K/uL RBC 3.33 L (4.2-5.4) M/uL Hgb 10.2 L (12.0-16.0) g/dL Hct 32.5 L (37-47) % MCV 97.6 (80-100) fL MCH 30.6 (25-34) pg MCHC 31.4 L (32-36) g/dL RDW Std Deviation 53.6 H (36.4-46.3) fL RDW Coeff of Jany 15.0 H (11.5-14.5) % Plt Count 176 (130-400) K/uL MPV 10.5 H (7.4-10.4) fL Immature Gran % (Auto) 0.1 % Neut % (Auto) 67.0 % Lymph % (Auto) 22.4 % [place] % (Auto) 6.9 % Eos % (Auto) 3.5 % Baso % (Auto) 0.1 % Neut # (Auto) 4.56 (1.4-6.5) K/uL Lymph # (Auto) 1.53 (1.2-3.4) K/uL [place] # (Auto) 0.47 (0.11-0.59) K/uL Eos # (Auto) 0.24 (0-0.5) K/uL Baso # (Auto) 0.01 (0-0.2) K/uL Immature Gran # (Auto) 0.01 (0.00-0.02) K/uL Sodium 144 (136-145) mmol/L Potassium 4.0 D (3.5-5.1) mmol/L Chloride 114 H (98-107) mmol/L Carbon Dioxide 24 (21-32) mmol/L Anion Gap 6.0 (3-11) BUN 17 (7-18) mg/dl Creatinine 0.68 (0.6-1.2) mg/dl Est Cr Clr Drug Dosing 36.2 ml/min Est GFR ( Amer) 89.9 ml/min Est GFR (Non-Af Amer) 77.6 ml/min BUN/Creatinine Ratio 25.3 H (10-20) Glucose 72 (70-99) mg/dl Calcium 8.8 (8.5-10.1) mg/dl
[2021-10-02] MEDS: METOPROLOL TARTRATE 25 MG TAB PO SCH (11:04)
[2021-10-02] MEDS: POLYETHYLENE (MIRALAX) 17 GM PACK PO SCH (12:25)
[2021-10-02] MEDS: ENOXAPARIN INJ 40 MG/0.4 ML SYR SQ SCH (21:21)
[2021-10-03] MEDS: SODIUM CHLORIDE 0.9% 1000ML 1,000 ML IV SCH (06:35)
[2021-10-03 07:20] LABS: Basophils # (auto) 0.02 K/uL (0-0.2); Basophils % (auto) 0.3 %; Eosinophils % (auto) 4.8 %; Hematocrit (blood only) 32.4 % (37-47); Immature Granulocytes # (auto) 0.02 K/uL (0.00-0.02); Immature Granulocytes % (auto) 0.3 %; Lymphocytes # (auto) 1.41 K/uL (1.2-3.4); Lymphocytes % (auto) 22.4 %; Mean Corpuscular Hemoglobin 30.2 pg (25-34); Mean Corpuscular Hgb Conc 30.9 g/dL (32-36); Mean Corpuscular Volume 97.9 fL (80-100); Mean Platelet Volume 10.6 fL (7.4-10.4); Monocytes # (auto) 0.47 K/uL (0.11-0.59); Monocytes % (auto) 7.5 %; Neutrophils # (auto) 4.07 K/uL (1.4-6.5); Neutrophils % (auto) 64.7 %; Platelet Count 185 K/uL (130-400); RDW Coefficient of Variation 14.7 % (11.5-14.5); Red Blood Count 3.31 M/uL (4.2-5.4); White Blood Count 6.29 K/uL (4.8-10.8)
[2021-10-03 07:36] LABS: BUN Creatinine Ratio 19.9 (10-20); Calcium 8.4 mg/dl (8.5-10.1); Creatinine Clr Calc Pharmacy 36.8 ml/min; Est GFR (African American) 90.3 ml/min; Est GFR (Non-African American) 77.9 ml/min; Potassium 3.5 mmol/L (3.5-5.1)
[2021-10-03] MEDS: METOPROLOL TARTRATE 25 MG TAB PO SCH (08:12)
[2021-10-03] MEDS: POLYETHYLENE (MIRALAX) 17 GM PACK PO SCH ×3 (08:13→18:07)
--- NOTE | 2021-10-03 10:00 | Hospitalist Progress Note ---
Date of Service October 03, 2021 Assessment & Plan (1) SBO (small bowel obstruction): Plan: Yvette is a 89F with a history of small bowel resection who was admitted 09/30 for jejunal SBO confirmed by CT scan. KUB 10/01 showed no signs of obstruction with fecal retention. Her abdominal pain and nausea have resolved; she has passed flatulence but has not had a bowel movement yet. SBO - Likely secondary to adhesions - Confirmed by CT scan on 09/30 - KUB XR on 10/01 demonstrated no obstruction with fecal retention - Abdomen is soft, nondistended, nontender - No leukocytosis - General surgery consulted, no surgical intervention at this time - Advance diet to full liquids and discontinue IV fluids - Add Senna q4h to Miralax until bowel movement - Continue pain management as needed IV Zofran for nausea PRN - Monitor electrolytes and BM - PT recommended that patient can return home with family and patient's care and home health service - OT ordered Uterine mass - CT Abd/Pelvis 09/30 demonstrated large uterine mass with fat that may represent a lipoma or leiomyoma - Follow up with PCP Hypertension Continue metoprolol at home regimen Heart murmur Per outpatient visit notes, patient deferred echocardiogram in 07/2021 ECHO 10/01 demonstrated EF >70%, mild to moderate LVH, severe aortic stenosis, severe mitral regurgitation, with severe dilation of left atrium No signs or symptoms of CHF at this time. DVT ppx: Lovenox FEN/GI: Full liquids Bowel regimen: Senna and Miralax Code Status: DNR/DNI Dispo: med/surg (2) Uterine mass: (3) Hypertension: (4) Cardiac murmur, unspecified: Admission and Anticipated Discharge Date Admission Date: September 30, 2021 Supervising Physician Co-Signing Physician Notes Medical Student Supervision Note: I was personally present during medical student patient encounter and independently interviewed and examined the patient and verified the gil history and physical, reviewed labs and image studies, discussed the case with /v salas Kincaid and agree with the findings and care plan. Ileus sec to adhesion and fecal retention. Diet advanced - tolerated. d/c IVF Aggressive bowel regimen. Anticipate home in am with home health services. Subjective She is tolerating clears well with no dysphagia. She is unsure of her last bowel movement; she has not had a bowel movement since admission but has passed flatulence. Her abdominal pain, nausea, and emesis have resolved, and she is feeling well. Review of Systems Constitutional: no fever, no chills, no body aches and no fatigue Ear, Nose, Mouth, Throat: no sore throat and no dysphagia Respiratory: no cough and no dyspnea Cardiovascular: no chest pain and no lightheadedness Gastrointestinal: no abdominal pain, no nausea, no vomiting and no diarrhea/loose stools Genitourinary: no dysuria Neurologic: no tingling and no numbness Physical Exam Constitutional: cooperative; no acute distress and not ill appearing Eyes: conjunctivae normal, anicteric sclera Respiratory: normal respiratory effort, lungs clear to auscultation (besides trace insp crackles at bases) normal respiratory effort and able to speak in complete sentences; no respiratory distress, no labored breathing, no retractions, no cough and no audible wheezes Cardiovascular: Rate/Rhythm: regular rate and regular rhythm Heart Sounds: normal S1, normal S2 and + murmur (systolic, best heard at left lower sternal border); no gallop and no cardiac rub Extremities: no edema Gastrointestinal (Abdomen): Inspection/Auscultation: + abdominal surgical scar (midline laparotomy scar); abdomen not distended and no abdominal edema Percussion/Palpation: abdomen soft; abdomen nontender and no guarding Skin: no rashes, warm and dry Neurologic: Speech / Cognition: normal speech Psychiatric: Orientation: alert Results & Data Results & Data ([facility]) Vital Signs (Past 12 Hours) Vital Signs Temp Pulse Resp BP BP Pulse Ox 10/03/21 07:06 36.4 C L 79 16 149/80 H 96 10/02/21 23:07 36.9 C 75 18 121/49 L 94 Laboratory Results 10/03/21 10/03/21 Range/Units 07:00 07:00 WBC 6.29 (4.8-10.8) K/uL RBC 3.31 L (4.2-5.4) M/uL Hgb 10.0 L (12.0-16.0) g/dL Hct 32.4 L (37-47) % MCV 97.9 (80-100) fL MCH 30.2 (25-34) pg MCHC 30.9 L (32-36) g/dL RDW Std Deviation 53.0 H (36.4-46.3) fL RDW Coeff of Jany 14.7 H (11.5-14.5) % Plt Count 185 (130-400) K/uL MPV 10.6 H (7.4-10.4) fL Immature Gran % (Auto) 0.3 % Neut % (Auto) 64.7 % Lymph % (Auto) 22.4 % [place] % (Auto) 7.5 % Eos % (Auto) 4.8 % Baso % (Auto) 0.3 % Neut # (Auto) 4.07 (1.4-6.5) K/uL Lymph # (Auto) 1.41 (1.2-3.4) K/uL [place] # (Auto) 0.47 (0.11-0.59) K/uL Eos # (Auto) 0.30 (0-0.5) K/uL Baso # (Auto) 0.02 (0-0.2) K/uL Immature Gran # (Auto) 0.02 (0.00-0.02) K/uL Sodium 144 (136-145) mmol/L Potassium 3.5 (3.5-5.1) mmol/L Chloride 114 H (98-107) mmol/L Carbon Dioxide 25 (21-32) mmol/L Anion Gap 5.0 (3-11) BUN 13 (7-18) mg/dl Creatinine 0.67 (0.6-1.2) mg/dl Est Cr Clr Drug Dosing 36.8 ml/min Est GFR ( Amer) 90.3 ml/min Est GFR (Non-Af Amer) 77.9 ml/min BUN/Creatinine Ratio 19.9 (10-20) Glucose 83 (70-99) mg/dl Calcium 8.4 L (8.5-10.1) mg/dl
[2021-10-03] MEDS: SENNA 8.6 MG TAB PO SCH (12:43)
[2021-10-03] MEDS ORDERED: ALBUT/IPRATROP 3MG/0.5MG NEB 3 ML VIAL NEB PRN (13:50)
[2021-10-03] MEDS ORDERED: SOD PHOSPHATE/SOD BIPHOSPHATE ENEMA 132 ML BTL PR STA (17:06)
[2021-10-03] MEDS: ENOXAPARIN INJ 40 MG/0.4 ML SYR SQ SCH (20:59)
[2021-10-03] MEDS: bisacodyL 10 MG SUPP PR SCH (20:59)
[2021-10-04 06:55] LABS: Basophils # (auto) 0.01 K/uL (0-0.2); Basophils % (auto) 0.1 %; Eosinophils # (auto) 0.36 K/uL (0-0.5); Eosinophils % (auto) 4.5 %; Hematocrit (blood only) 33.4 % (37-47); Hemoglobin 10.6 g/dL (12.0-16.0); Immature Granulocytes # (auto) 0.05 K/uL (0.00-0.02); Immature Granulocytes % (auto) 0.6 %; Lymphocytes # (auto) 1.38 K/uL (1.2-3.4); Lymphocytes % (auto) 17.4 %; Mean Corpuscular Hemoglobin 30.4 pg (25-34); Mean Corpuscular Hgb Conc 31.7 g/dL (32-36); Mean Corpuscular Volume 95.7 fL (80-100); Mean Platelet Volume 10.3 fL (7.4-10.4); Monocytes # (auto) 0.68 K/uL (0.11-0.59); Monocytes % (auto) 8.6 %; Neutrophils # (auto) 5.44 K/uL (1.4-6.5); Neutrophils % (auto) 68.8 %; Platelet Count 190 K/uL (130-400); RDW Coefficient of Variation 14.5 % (11.5-14.5); RDW Standard Deviation 50.8 fL (36.4-46.3); Red Blood Count 3.49 M/uL (4.2-5.4); White Blood Count 7.92 K/uL (4.8-10.8)
[2021-10-04 07:31] LABS: BUN Creatinine Ratio 12.1 (10-20); Calcium 8.5 mg/dl (8.5-10.1); Creatinine Clr Calc Pharmacy 43.2 ml/min; Est GFR (African American) 95.3 ml/min; Est GFR (Non-African American) 82.2 ml/min; Potassium 3.3 mmol/L (3.5-5.1)
[2021-10-04] MEDS: METOPROLOL TARTRATE 25 MG TAB PO SCH (09:58)
[2021-10-04] MEDS: SENNA 8.6 MG TAB PO SCH (09:58)
--- NOTE | 2021-10-04 13:21 | Hospitalist Progress Note ---
Date of Service October 04, 2021 Assessment & Plan (1) SBO (small bowel obstruction): Plan: Yvette is a 89F with a history of small bowel resection who was admitted 09/30 for jejunal SBO confirmed by CT scan. KUB 10/01 showed no signs of obstruction. Her abdominal pain and nausea have resolved; she has passed a bowel movement. SBO - Likely secondary to adhesions - Confirmed by CT scan on 09/30 - KUB XR on 10/01 demonstrated no obstruction with fecal retention - Abdomen is soft, nondistended, nontender - No leukocytosis - General surgery consulted, no surgical intervention at this time - Continue full liquids - Aggressive bowel movement of milk and molasses enema ordere - Had a bowel movement vs diarrhea; ordered KUB to assess if there's still fecal retention - Continue pain management as needed, IV Zofran for nausea PRN - Monitor electrolytes - PT recommended that patient can return home with family and patient's care and home health service; OT recommended OT while at [facility] - Currently on 2L NC due to shortness of breath; will attempt to wean and plan to discharge to home today if successful Uterine mass - CT Abd/Pelvis 09/30 demonstrated large uterine mass with fat that may represent a lipoma or leiomyoma - Follow up with PCP Hypertension Continue metoprolol at home regimen Heart murmur Per outpatient visit notes, patient deferred echocardiogram in 07/2021 ECHO 10/01 demonstrated EF >70%, mild to moderate LVH, severe aortic stenosis, severe mitral regurgitation, with severe dilation of left atrium No signs or symptoms of CHF at this time. DVT ppx: Lovenox FEN/GI: Full liquids Bowel regimen: Milk and molasses enema Code Status: DNR/DNI Dispo: med/surg (2) Uterine mass: (3) Hypertension: (4) Cardiac murmur, unspecified: Admission and Anticipated Discharge Date Admission Date: September 30, 2021 Supervising Physician Co-Signing Physician Notes Medical Student Supervision Note: I was personally present during medical student patient encounter and independently interviewed and examined the patient and verified the gil history and physical, reviewed labs and image studies, discussed the case with Isi Kincaid and agree with the findings and care plan. Ileus sec to adhesion and fecal retention. Ileus resolved. Diet advanced - tolerating Fecal impaction - persists on repeat KUB today. continue Aggressive bowel regimen. Anticipate home with home health services once fecal impaction resolved. Subjective She is tolerating full liquids well with no dysphagia. Yesterday, the patient refused an enema and Dulcolax. She had a bowel movement vs diarrhea this afternoon. KUB was ordered to assess if there is still bowel retention. Her abdominal pain, nausea, and emesis have resolved. Yesterday, she had shortness of breath walking to the bathroom and was put on 2L NC and nebulizer PRN; she has no SOB currently. Review of Systems Constitutional: no fever, no chills, no body aches and no fatigue Ear, Nose, Mouth, Throat: no sore throat and no dysphagia Respiratory: no cough and no dyspnea Cardiovascular: no chest pain and no lightheadedness Gastrointestinal: no abdominal pain, no nausea, no vomiting and no diarrhea/loose stools Genitourinary: no dysuria Neurologic: no tingling and no numbness Physical Exam Constitutional: cooperative; no acute distress and not ill appearing Eyes: + anicteric sclerae Respiratory: normal respiratory effort, lungs clear to auscultation normal respiratory effort and able to speak in complete sentences; no respiratory distress, no labored breathing, no retractions, no cough and no audible wheezes Cardiovascular: Rate/Rhythm: regular rate and regular rhythm Heart Sounds: normal S1, normal S2 and + murmur (systolic, best heard at left lower sternal border); no gallop and no cardiac rub Extremities: no edema Gastrointestinal (Abdomen): Inspection/Auscultation: abdomen normal to inspection, normal bowel sounds (hypoactive bowel sounds) and + abdominal surgical scar (midline laparotomy scar); abdomen not distended and no abdominal edema Percussion/Palpation: abdomen soft; abdomen nontender and no guarding Skin: no rashes, warm and dry Neurologic: Speech / Cognition: normal speech Psychiatric: Orientation: alert Results & Data Results & Data ([facility]) Vital Signs (Past 12 Hours) Vital Signs Temp Pulse Resp BP BP Pulse Ox 10/04/21 07:19 36.4 C L 91 H 19 155/73 H 98 10/03/21 23:38 36.6 C 107 H 18 163/80 H 97 Laboratory Results 10/04/21 10/04/21 Range/Units 06:32 06:32 WBC 7.92 (4.8-10.8) K/uL RBC 3.49 L (4.2-5.4) M/uL Hgb 10.6 L (12.0-16.0) g/dL Hct 33.4 L (37-47) % MCV 95.7 (80-100) fL MCH 30.4 (25-34) pg MCHC 31.7 L (32-36) g/dL RDW Std Deviation 50.8 H (36.4-46.3) fL RDW Coeff of Jany 14.5 (11.5-14.5) % Plt Count 190 (130-400) K/uL MPV 10.3 (7.4-10.4) fL Immature Gran % (Auto) 0.6 % Neut % (Auto) 68.8 % Lymph % (Auto) 17.4 % [place] % (Auto) 8.6 % Eos % (Auto) 4.5 % Baso % (Auto) 0.1 % Neut # (Auto) 5.44 (1.4-6.5) K/uL Lymph # (Auto) 1.38 (1.2-3.4) K/uL [place] # (Auto) 0.68 H (0.11-0.59) K/uL Eos # (Auto) 0.36 (0-0.5) K/uL Baso # (Auto) 0.01 (0-0.2) K/uL Immature Gran # (Auto) 0.05 H (0.00-0.02) K/uL Sodium 140 (136-145) mmol/L Potassium 3.3 L (3.5-5.1) mmol/L Chloride 110 H (98-107) mmol/L Carbon Dioxide 26 (21-32) mmol/L Anion Gap 4.0 (3-11) BUN 7 D (7-18) mg/dl Creatinine 0.57 L (0.6-1.2) mg/dl Est Cr Clr Drug Dosing 43.2 ml/min Est GFR ( Amer) 95.3 ml/min Est GFR (Non-Af Amer) 82.2 ml/min BUN/Creatinine Ratio 12.1 (10-20) Glucose 91 (70-99) mg/dl Calcium 8.5 (8.5-10.1) mg/dl
--- NOTE | 2021-10-04 17:17 | XRay Report ---
KUB CLINICAL HISTORY: Ileus. FINDINGS: An AP supine abdominal radiograph is compared to study dated 10/01/2021 and correlated with abdominal CT dated 09/30/2021. There is rectosigmoid fecal impaction, with gas seen throughout the c olon. No bowel obstruction is identified. No evidence of intraperitoneal free air is seen on this sup ine image. Large calcified fibroids are again seen in the pelvis. The skeletal structures are osteop enic and appears intact. Lumbosacral spondylosis is observed. The heart is enlarged and much annulus is densely calcified. IMPRESSION: Rectosigmoid fecal impaction with no radiographic evidence of high-grade bowel obstructio n. Electronically signed by: Manuelito Sarabia M.D. 10/04/2021 5:16 PM
[2021-10-04] MEDS: ENOXAPARIN INJ 40 MG/0.4 ML SYR SQ SCH (19:33)
[2021-10-04] MEDS: bisacodyL 10 MG SUPP PR SCH (19:33)
--- NOTE | 2021-10-05 03:43 | Billing Data ---
Date of Service October 05, 2021 Coding Level of Care Code 03141 Initial Inpt Care Lvl 3
[2021-10-05 07:03] LABS: Basophils # (auto) 0.02 K/uL (0-0.2); Basophils % (auto) 0.3 %; Eosinophils # (auto) 0.36 K/uL (0-0.5); Eosinophils % (auto) 5.3 %; Hematocrit (blood only) 34.9 % (37-47); Hemoglobin 11.8 g/dL (12.0-16.0); Immature Granulocytes # (auto) 0.06 K/uL (0.00-0.02); Immature Granulocytes % (auto) 0.9 %; Lymphocytes # (auto) 1.48 K/uL (1.2-3.4); Lymphocytes % (auto) 21.6 %; Mean Corpuscular Hemoglobin 32.2 pg (25-34); Mean Corpuscular Hgb Conc 33.8 g/dL (32-36); Mean Corpuscular Volume 95.4 fL (80-100); Mean Platelet Volume 10.8 fL (7.4-10.4); Monocytes % (auto) 8.8 %; Neutrophils # (auto) 4.32 K/uL (1.4-6.5); Neutrophils % (auto) 63.1 %; Platelet Count 197 K/uL (130-400); RDW Coefficient of Variation 14.4 % (11.5-14.5); RDW Standard Deviation 49.9 fL (36.4-46.3); Red Blood Count 3.66 M/uL (4.2-5.4); White Blood Count 6.84 K/uL (4.8-10.8)
[2021-10-05] MEDS: METOPROLOL TARTRATE 25 MG TAB PO SCH (07:34)
[2021-10-05] MEDS: SENNA 8.6 MG TAB PO SCH (07:34)
[2021-10-05 07:38] LABS: BUN Creatinine Ratio 11.5 (10-20); Calcium 8.5 mg/dl (8.5-10.1); Est GFR (African American) 93.7 ml/min; Est GFR (Non-African American) 80.8 ml/min; Potassium 3.1 mmol/L (3.5-5.1)
--- NOTE | 2021-10-05 07:43 | Discharge Summary ---
Date of Service October 05, 2021 Admission HPI Per Admitting Provider Pleasantly demented 89-year-old female who was brought to the emergency department by her daughter for abdominal pain and nausea that started earlier today. History somewhat limited by patient's dementia and failure number not at bedside. Yvette states that she started having abdominal pain earlier today and has not tried anything to make it better. She states she has not been able to go to the bathroom. She does feel somewhat nauseous. She denies any fevers, chills, dysuria, frequency of urination, chest pain, respiratory difficulty. She is oriented to person and place (hospital, did not know city). Per nursing, patient has had multiple bouts of nausea and brownbilious emesis in the emergency department. Has been better after receiving Zofran. ER course significant for CT abdomen pelvis showing small bowel obstruction. Currently has a liter of normal saline running at 80 mL/h. Admission Exam Per Admitting Provider Constitutional: cooperative; no acute distress and not ill appearing Eyes: PERRL, conjunctivae normal, anicteric sclerae Neck: normal visual inspection Respiratory: normal respiratory effort and able to speak in complete sentences; no respiratory distress, no labored breathing, no retractions, no cough and no audible wheezes Auscultation: lungs clear to auscultation randy aterally; no crackles, no rales, no rhonchi and no wheezes Cardiovascular: Rate/Rhythm: regular rate and regular rhythm Heart Sounds: normal S1, normal S2 and + murmur (Blowing harsh systolic murmur heard best at left lower sternal border); no gallop and no cardiac rub Extremities: normal capillary refill; no calf tenderness, no pedal edema and no edema Gastrointestinal (Abdomen): Inspection/Auscultation: + abdomen distended; + ab domen abnormal to inspection, + abnormal bowel sounds (No bowel sounds auscultated) and no abdominal edema Percussion/Palpation: + abdomen tender, + guarding (Involuntary guarding) and abdomen soft; abdomen not rigid and no abdominal mass Musculoskeletal: no cyanosis or clubbing, extremities motor strength 5/5 Skin: no rashes, warm and dry Neurologic: PERRL, EOMI, accommodation nl, no face palsy, no dysarthria Speech / Cognition: normal speech Motor/Sensory: no tremor Psychiatric: Orientation: alert, oriented to person and oriented to place; + not oriented to time Principal Diagnosis small bowel obstruction Discharge Exam General: A&Ox2-3, not to context. NAD. Cooperative. HEENT: Atraumatic, normocephalic. EOMI Pulm: Faint crackles at RLL. Symmetrical chest rise. No respiratory distress. Cardiac: RRR, -mrg. Puffy LE, no pitting Abdominal: Nontender, nondistended, soft. Discharge Data Allergies Allergy/AdvReac Type Severity Reaction Status Date / Time No Known Drug Allergies Allergy Unknown Verified 09/30/21 15:18 Consultations 09/30/21 19:10 ED Decision to Admit Stat 09/30/21 20:00 Consult General Surgery Routine Ordered Studies 10/05/21 06:35 10/05/21 11:58 Abdomen/Pelvis CT 09/30/21 15:19 CT abd pelvis IV con only CLINICAL HISTORY: vomiting hx obstruction TECHNIQUE: Helical axial images of the abdomen and pelvis were obtained and disp layed. Automated dose lowering techniques and/or adjustment according to patient size were utilized for this exam. This exam was performed with intravenous contrast. COMPARISON: None available at the time of this dictation. FINDINGS: Lower chest: Cardiomegaly is partially visualized. Liver: Unremarkable. No focal lesions are seen. Gallbladder and biliary tree: The gallbladder is contracted. No intra- or extrahepatic biliary ductal dilation. Pancreas: Unremarkable, no focal lesions. Spleen: Unremarkable. Adrenals: Unremarkable. Kidneys and ureters: There are simple cysts in the right kidney. Bladder: Unremarkable. 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 There is a heterogeneous mixed density lesion in the anterior aspect of the uterus measuring 8.0 x 6.4 cm containing components of fat and soft tissue density. Bowel: Prominent rectal stool burden is noted. Diverticulosis is seen without evidence of diverticulitis. There are multiple distended loops of small bowel measuring up to 37 mm in diameter. No proximal transition point is seen, there is a distal transition into collapsed small bowel. Lymph nodes Retroperitoneal: Unremarkable. Mesenteric: Unremarkable. Pelvic: Unremarkable. Peritoneum: Normal Vessels: Atherosclerotic calcifications are seen. Abdominal wall: Unremarkable. Bones: Multilevel loss of height is seen in the lumbar spine. Degenerative changes are noted throughout the visualized skeleton. IMPRESSION: 1. Small bowel obstruction in the jejunum, no evidence of closed loop obstruction. 2. Large uterine mass with fat may represent a lipoma or leiomyoma. 3. Incidental findings as above. ACT 112: Negative or not required by law. Electronically signed by: Kofi Maki M.D. 09/30/2021 6:06 PM KUB X-Ray 10/01/21 13:32 KUB CLINICAL HISTORY: Small bowel obstruction. FINDINGS: An AP supine abdominal radiograph is correlated with abdominal CT dated 09/30/2021. There is no radiographic evidence of bowel obstruction. Mild fecal retention is seen throughout the colon. No evidence of intraperitoneal free air is seen on this supine image. Excreted IV contrast fills the bladder. 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 The skeletal structures are osteopenic. IMPRESSION: There is no radiographic evidence of bowel obstruction. The obstruction seen by CT is not apparent on x-ray. Electronically signed by: Manuelito Sarabia M.D. 10/01/2021 2:44 PM KUB X-Ray 10/04/21 16:47 KUB CLINICAL HISTORY: Ileus. FINDINGS: An AP supine abdominal radiograph is compared to study dated 10/01/2021 and correlated with abdominal CT dated 09/30/2021. There is rectosigmoid fecal impaction, with gas seen throughout the colon. No bowel obstruction is identified. No evidence of intraperitoneal free air is seen on this supine image. Large calcified fibroids are again seen in the pelvis. The skeletal structures are osteopenic and appears intact. Lumbosacral spondylosis is observed. The heart is enlarged and much annulus is densely calcified. IMPRESSION: Rectosigmoid fecal impaction with no radiographic evidence of high- grade bowel obstruction. Electronically signed by: Manuelito Sarabia M.D. 10/04/2021 5:16 PM KUB X-Ray 10/05/21 13:41 XR KUB/Abdomen 1 view CLINICAL HISTORY: fecal impaction. Recent bowel obstruction TECHNIQUE: 1 view of the abdomen was obtained. Comparison: None available at the time of this dictation. FINDINGS: Lung bases are unremarkable. The osseous structures are grossly unremarkable. The bowel gas pattern is nonobstructive. There is a moderate amount of feces in the rectum without evidence of circumferential gas to suggest impaction. IMPRESSION: Nonobstructive bowel gas pattern. No evidence of rectal impaction. ACT 112: Negative or not required by law. Electronically signed by: Kofi Maki M.D. 10/05/2021 2:39 PM Hospital Course (1) SBO (small bowel obstruction): Yvette is a 89F w/ PMHx of dementia, HTN, recurrent SBO symptoms, and reported distant small bowel resection for SBO who was admitted 09/30 for jejunal SBO (CT abd) that improved w/ clear liquid diet. SBO - Likely secondary to adhesions - Abdomen exam remained benign, soft, nontender during hospital stay day 2 onwards - General surgery consulted, no surgical intervention - KUB XR on 10/01 demonstrated no obstruction, but with fecal retention. - Bowel regimen provided. - Resolved on repeat imaging and passed BM - PT recommended that patient can return home with family and patient's care and home health service; OT recommended OT while at [facility]. Patient and family declined home health/therapy - Titrate Miralax at home; PCP to adjust bowel regimen. Consider low fiber diet. Hypoxia - Was on 2L O2, but passed 2 step on day of dispo - Likely due to ileus leading to atelectasis Uterine mass - CT Abd/Pelvis 09/30 demonstrated large uterine mass 8.0 x 6.4 cm that may represent a lipoma or leiomyoma. Unlikely contributory to fecal impaction above as it improved w/ bowel regimen - Follow up with PCP Hypertension Continue home metoprolol Heart murmur Per outpatient visit notes, patient deferred echocardiogram in 07/2021 ECHO 10/01 demonstrated EF >70%, mild to moderate LVH, severe aortic stenosis, severe mitral regurgitation, with severe dilation of left atrium No signs or symptoms of CHF at this time. (2) Uterine mass: (3) Hypertension: (4) Cardiac murmur, unspecified: Total Time Total Time Spent Total Time Spent (In Minutes): <30 Discharge Plan Discharge Items Patient Disposition: Home - Self-Care Reason For Visit: SBO Discharge Diagnosis: small bowel obstruction Activity: Per Instructions section Non-emergency contact: Primary Care Provider Call non-emergency contact if: you have any medication questions, your symptoms worsen and you have a fever Follow-up/Referrals: Serjio Bhakta DO [Primary Care Provider] - 10/17/21 9:15 am (Yvette your hospitalist is suggesting a PCP follow up within 1 week. Due to the upcoming h oliday and provider schedule, we were able to schedule at the time and date listed. Please phone Dr. Jones office next week to see if there is a cancellation to be seen sooner.) Diet: Low Fiber Addtl Attending Provider Instructions: Hi Ms. Connor, You were admitted to [facility] for a small bowel obstruction. This improved on its own. Your stay was also complicated by impacted stool. This improved after medications. On the CT scan of the abdomen, there was a uterine mass noted that may be a fibroid. Please follow up with your primary care doctor who can refer you to a welding machine operator electro gas for follow up. Please take miralax 1-2 packets daily for constipation. This can be adjusted/titrated as needed and can be converted to an as needed basis once your bowels become more regular. I will not be including Senna in our list of medications at this time. If you are unable to tolerate Miralax, may discuss alternative bowel regimen with PCP. Dietary recommendations: smaller more frequent meals and meals lower in fiber. Please follow up with your primary care doctor within one week of hospital discharge. If you develop any new or worsening symptoms including fever, chills, sweats, chest pain, chest pressure, difficulty breathing, uncontrolled nausea/vomiting, rash, wheezing, passing out or nearly passing out, bleeding, black/bloody bowel movements, or other new or concerning symptoms please call your primary care physician, or call 911 for re-evaluation in the emergency department if you are very concerned. Pending Studies at Discharge: No Stand-Alone Forms: [facility], Smoking Cessation Medications and DC Order Prescriptions: Continued metoprolol tartrate 25 mg tablet 25 mg PO DAILY Qty: 90 RF: 1 Discharge Orders: Discharge Order (Routine); Ordered 10/05/21 Ordered By: Rachid Vargas/Other Patient Handouts: Anatomy of the Digestive System Admission Data Admit Date/Time: 09/30/21 19:56 Attending Provider: Nirmala Schaffer Admit Provider: Samantha De La Vega Primary Care Provider: Serjio Bhakta Other Providers: Moose Coreas ; Aditya Jordan Other Interventions: Discharge Summary Assessment (RN) Last Done: 10/05/21 18:15 Supervising Physician Co-Signing Physician Notes Resident Physician Supervision Note: I independently interviewed and examined the patient and verified the gil history and physical, reviewed labs and image studies and agree with resident Dr. Bennett findings and care plan. Resident Activity Tracking Resident Involvement: Resident Care Provided Care Provided: Adult [facility]
[2021-10-05] MEDS ORDERED: POTASSIUM CHLORIDE 20 MEQ/15 ML UDC PO STA (07:44)
[2021-10-05 12:37] LABS: BUN Creatinine Ratio 13.5 (10-20); Calcium 8.8 mg/dl (8.5-10.1); Creatinine Clr Calc Pharmacy 35.2 ml/min; Est GFR (Non-African American) 76.8 ml/min; Potassium 4.6 mmol/L (3.5-5.1)
--- NOTE | 2021-10-05 14:41 | XRay Report ---
XR KUB/Abdomen 1 view CLINICAL HISTORY: fecal impaction. Recent bowel obstruction TECHNIQUE: 1 view of the abdomen was obtained. Comparison: None available at the time of this dictation. FINDINGS: Lung bases are unremarkable. The osseous structures are grossly unremarkable. The bowel gas pattern i s nonobstructive. There is a moderate amount of feces in the rectum without evidence of circumferenti al gas to suggest impaction. IMPRESSION: Nonobstructive bowel gas pattern. No evidence of rectal impaction. ACT 112: Negative or not required by law. Electronically signed by: Kofi Maki M.D. 10/05/2021 2:39 PM
[2021-10-05] MEDS ORDERED: DOCUSATE SODIUM/SENNA 50/8.6MG TAB PO STA (14:46)
[2021-10-05] MEDS ORDERED: bisacodyL 10 MG SUPP PR SCH (21:00)
--- NOTE | 2021-10-09 12:17 | Emergency Department Note ---
History of Present Illness General Chief complaint: GI Assessment Stated complaint: VOMITING, LOOSING APETITE, NO FULL BOWEL MOVE. Time Seen by Provider: 09/30/21 14:18 History of Present Illness This patient is a pleasant 89-year-old female who presents emergency department with her family for evaluation of vomiting that started at 4 AM this morning. The patient has a history of a bowel obstruction. The patient also is a history of dementia. She was seen by telehealth prior to arrival in the emergency de partment. The history was taken from the patient's daughter. The patient is currently denying any pain. She has had a small amount of liquid stool in her depends. There has been no fever. She has not taken anything [id number] for her symptoms. Home Medications Medication Instructions Recorded Confirmed Type metoprolol tartrate 25 mg tablet 25 mg PO DAILY #90 tab 03/29/21 09/30/21 Rx polyethylene glycol 3350 17 17 g PO DAILY #119 g 10/09/21 10/09/21 Rx gram/dose oral powder Allergies Allergy/AdvReac Type Severity Reaction Status Date / Time No Known Drug Allergies Allergy Unknown Verified 09/30/21 15:18 Past Med/Surg History Medical History Arthritis Hyperlipidemia Hypertension Surgical History S/P knee replacement S/P shoulder surgery S/P small bowel resection from SBO in approx. 2000 Family History Other No significant family history Denies family history of Colon cancer Ovarian cancer Prostate cancer Myocardial infarction Breast cancer Social History Smoking Status: Never smoker Second Hand Exposure: No; Hx Alcohol Use: No Hx Substance Use: No Preferred Language: Niuean Communication Ability: Effective Visual Impairment: Limited Hearing Ability: Use of Hearing Aid Case Management Coordinator Required: No Beliefs That Will Affect Care: None marital status: / Current Living Situation: Family Current Living Situation Comment: Lives with children current occupational status: retired How many Children do You have: 1 Feels Safe at Home: Yes Dental Care, Regularly: Yes Physical Activity Frequency: Other Physical Activity Frequency Comment: Limited by physical condition Seatbelt Use: sometimes Assistive Devices: Walker Review of Systems A total of 10 systems reviewed and were otherwise negative Physical Exam See below Constitutional WD/WN, vitals as above Eyes EOM intact bilaterally ENMT Oral mucosa slightly dry Neck trachea midline Respiratory normal respiratory effort, lungs clear to auscultation Cardiovascular RRR, no murmur, no edema Gastrointestinal (Abdomen) normal bowel sounds, soft, nontender, no hepatosplenomegaly Musculoskeletal no cyanosis or clubbing, extremities motor strength 5/5 Skin no rashes, warm and dry Neurologic Alert and answering some questions appropriately Psychiatric Acting appropriately Course Course Patient was seen and examined Vital signs including blood pressure were reviewed medications list was verified with patient Labs were obtained, and a saline lock was established The patient was medicated with Zofran and started on fluids Imaging was performed and reviewed Upon reevaluation, the patient was resting comfortably. I discussed the results with the patient and the patient's family. The case was discussed with my supervising physician who personally evaluated the patient The hospitalist service was consulted. They agreed to see the patient for likely inpatient management. The patient remained stable in the emergency department. Consultations Consultation #1: [facility] hospitalist Administered Medications Discontinued Medications Albuterol (Albut/Ipratrop 3mg/0.5mg Neb 3 Ml Vial) 3 ml NEB Q6H PRN PRN Reason: sob Stop: 11/02/21 13:59 Last Admin: 10/03/21 15:01 Dose: 3 ml Documented by: [id number] Bisacodyl (Bisacodyl 10 Mg Supp) 10 mg SC HS SHERWIN Stop: 11/02/21 20:59 Last Admin: 10/04/21 19:33 Dose: 10 mg Documented by: [id number] Admin: 10/03/21 20:59 Dose: Not Given Documented by: [id number] Enoxaparin Sodium (Enoxaparin Inj 40 Mg/0.4 Ml Syr) 40 mg SQ QPM SHERWIN Stop: 10/31/21 20:59 Last Admin: 10/04/21 19:33 Dose: 40 mg Documented by: [id number] Admin: 10/03/21 20:59 Dose: Not Given Documented by: [id number] Admin: 10/02/21 21:21 Dose: 40 mg Documented by: [id number] Admin: 10/01/21 20:40 Dose: 40 mg Documented by: [id number] Sodium Chloride (Nss 1000ml) 250 mls @ 999 mls/hr IV .Q16M ONE Stop: 09/30/21 15:34 Last Infusion: 09/30/21 17:24 Dose: 0 mls/hr Documented by: [id number] Admin: 09/30/21 16:17 Dose: 999 mls/hr Documented by: [id number] Potassium Chloride 10 meq/ (Dextrose/Sodium Chloride) 1,005 mls @ 80 mls/hr IV .[id number] SHERWIN Stop: 10/30/21 18:59 Last Infusion: 10/02/21 14:45 Dose: 0 mls/hr Documented by: [id number] Admin: 09/30/21 19:46 Dose: 80 mls/hr Documented by: [id number] Sodium Chloride (Nss 1000ml) 1,000 mls @ 85 mls/hr IV .[id number] SHERWIN Stop: 10/01/21 21:44 Last Infusion: 10/02/21 00:09 Dose: 0 mls/hr Documented by: [id number] Admin: 10/01/21 12:15 Dose: 85 mls/hr Documented by: [id number] Infusion: 10/01/21 10:33 Dose: 85 mls/hr Documented by: [id number] Admin: 09/30/21 22:47 Dose: 85 mls/hr Documented by: [id number] Potassium Chloride (K Otilio / Wtr) 10 meq in 100 mls @ 100 mls/hr IV Q1H SHERWIN Stop: 10/01/21 22:59 Last Infusion: 10/01/21 23:35 Dose: 0 mls/hr Documented by: [id number] Admin: 10/01/21 22:29 Dose: 100 mls/hr Documented by: [id number] Infusion: 10/01/21 22:29 Dose: 100 mls/hr Documented by: [id number] Admin: 10/01/21 21:37 Dose: 100 mls/hr Documented by: [id number] Infusion: 10/01/21 21:37 Dose: 100 mls/hr Documented by: [id number] Admin: 10/01/21 20:38 Dose: 100 mls/hr Documented by: [id number] Sodium Chloride (Nss 1000ml) 1,000 mls @ 85 mls/hr IV .[id number] SHERWIN Stop: 10/03/21 18:32 Last Infusion: 10/03/21 18:55 Dose: 0 mls/hr Documented by: [id number] Admin: 10/03/21 06:35 Dose: 85 mls/hr Documented by: [id number] Infusion: 10/03/21 06:14 Dose: 85 mls/hr Documented by: [id number] Admin: 10/02/21 18:28 Dose: 85 mls/hr Documented by: [id number] Infusion: 10/02/21 18:28 Dose: 85 mls/hr Documented by: [id number] Admin: 10/02/21 08:21 Dose: 85 mls/hr Documented by: [id number] Ioversol (Optiray 320 100ml) 92 ml IV ONCE ONE Stop: 09/30/21 17:45 Last Admin: 09/30/21 17:44 Dose: 1 ml Documented by: [id number] Metoprolol Tartrate (Metoprolol Tartrate 25 Mg Tab) 25 mg PO DAILY SHERWIN Stop: 10/31/21 08:59 Last Admin: 10/05/21 07:34 Dose: 25 mg Documented by: [id number] Admin: 10/04/21 09:58 Dose: 25 mg Documented by: [id number] Admin: 10/03/21 08:12 Dose: 25 mg Documented by: [id number] Admin: 10/02/21 11:04 Dose: 25 mg Documented by: [id number] Admin: 10/01/21 09:48 Dose: 25 mg Documented by: [id number] Ondansetron HCl (Ondansetron Inj 2 Mg/Ml 2 Ml Vial) 4 mg IV NOW STA Stop: 09/30/21 15:21 Last Admin: 09/30/21 16:17 Dose: 4 mg Documented by: [id number] Ondansetron HCl (Ondansetron Inj 2 Mg/Ml 2 Ml Vial) Confirm Administered Dose 4 mg .ROUTE .STK-MED ONE Stop: 09/30/21 19:40 Last Admin: 09/30/21 19:46 Dose: 4 mg Documented by: [id number] Ondansetron HCl (Ondansetron Inj 2 Mg/Ml 2 Ml Vial) 4 mg IV Q6H PRN PRN Reason: Nausea Stop: 10/30/21 22:49 Last Admin: 09/30/21 23:16 Dose: 4 mg Documented by: [id number] Polyethylene Glycol (Polyethylene (Miralax) 17 Gm Pack) 17 gm PO DAILY SHERWIN Stop: 11/01/21 12:29 Last Admin: 10/03/21 08:13 Dose: 17 gm Documented by: [id number] Admin: 10/02/21 12:25 Dose: 17 gm Documented by: [id number] Polyethylene Glycol (Polyethylene (Miralax) 17 Gm Pack) 17 gm PO Q4H SHERWIN Stop: 11/02/21 10:44 Last Admin: 10/03/21 18:07 Dose: 17 gm Documented by: [id number] Admin: 10/03/21 13:09 Dose: 17 gm Documented by: [id number] Potassium Chloride (Potassium Chloride 20 Meq/15 Ml Udc) 60 meq PO NOW STA Stop: 10/05/21 07:45 Last Admin: 10/05/21 08:25 Dose: 60 meq Documented by: [id number] Senna/Docusate Sodium (Docusate Sodium/Senna 50/8.6mg Tab) 1 tab PO NOW STA Stop: 10/05/21 14:47 Last Admin: 10/05/21 15:47 Dose: Not Given Documented by: [id number] Sennosides (Senna 8.6 Mg Tab) 8.6 mg PO QAM SHERWIN Stop: 11/02/21 10:44 Last Admin: 10/05/21 07:34 Dose: 8.6 mg Documented by: [id number] Admin: 10/04/21 09:58 Dose: 8.6 mg Documented by: [id number] Admin: 10/03/21 12:43 Dose: 8.6 mg Documented by: [id number] Sodium Biphosphate/Sodium Phosphate (Sod Phosphate/Sod Biphosphate Enema 132 Ml Btl) 132 ml SC NOW STA Stop: 10/03/21 17:07 Last Admin: 10/03/21 18:57 Dose: Not Given Documented by: [id number] Medical Decision Making Medical Records Attestation: I reviewed the patient's medical records. Home Medications Current Medication List: was personally reviewed by me Laboratory Data Attestation: I reviewed the patient's lab results. Result diagrams: 10/05/21 06:35 10/05/21 11:58 Lab Results 09/30/21 09/30/21 09/30/21 Range/Units 16:15 16:15 16:15 WBC 5.64 (4.8-10.8) K/uL RBC 4.41 (4.2-5.4) M/uL Hgb 13.7 (12.0-16.0) g/dL Hct 41.8 (37-47) % MCV 94.8 (80-100) fL MCH 31.1 (25-34) pg MCHC 32.8 (32-36) g/dL RDW Std Deviation 50.1 H (36.4-46.3) fL RDW Coeff of Jany 14.4 (11.5-14.5) % Plt Count 236 (130-400) K/uL MPV 11.1 H (7.4-10.4) fL Immature Gran % (Auto) 0.0 % Neut % (Auto) 84.1 % Lymph % (Auto) 8.5 % Hawkins % (Auto) 6.7 % Eos % (Auto) 0.5 % Baso % (Auto) 0.2 % Neut # (Auto) 4.74 (1.4-6.5) K/uL Lymph # (Auto) 0.48 L (1.2-3.4) K/uL Hawkins # (Auto) 0.38 (0.11-0.59) K/uL Eos # (Auto) 0.03 (0-0.5) K/uL Baso # (Auto) 0.01 (0-0.2) K/uL Immature Gran # (Auto) 0.00 (0.00-0.02) K/uL Sodium 141 (136-145) mmol/L Potassium 3.9 (3.5-5.1) mmol/L Chloride 102 (98-107) mmol/L Carbon Dioxide 28 (21-32) mmol/L Anion Gap 11.0 (3-11) BUN 23 H (7-18) mg/dl Creatinine 0.81 (0.6-1.2) mg/dl Est Cr Clr Drug Dosing Not Reportable Est GFR ( Amer) 74.6 ml/min Est GFR (Non-Af Amer) 64.4 ml/min BUN/Creatinine Ratio 28.2 H (10-20) Glucose 135 H (70-99) mg/dl Lactate 1.2 (0.4-2.0) mmol/L Calcium 9.3 (8.5-10.1) mg/dl Phosphorus 3.8 (2.5-4.9) mg/dl Magnesium 2.4 (1.8-2.4) mg/dl Total Bilirubin 1.0 (0.2-1) mg/dl AST 19 (15-37) U/L ALT 17 (12-78) U/L Alkaline Phosphatase 107 (45-117) U/L Troponin I < 0.015 (0-0.045) ng/ml Total Protein 7.6 (6.4-8.2) gm/dl Albumin 4.1 (3.4-5.0) gm/dl Globulin 3.5 (2.5-4.0) gm/dl Albumin/Globulin Ratio 1.2 (0.9-2) Blood Pressure Blood Pressure Findings: Normal blood pressure MDM Narrative Differential diagnosis: Bowel obstruction, gastroenteritis, pancreatitis, gallbladder pathology, dehydration, and others were considered This is an 89-year-old female presents the emergency department via private hicle after a telehealth visit for evaluation of vomiting. She has a history of bowel obstruction. On exam, she was nontoxic in appearance. Her vital signs are stable. Her abdomen was fairly benign. She did have bowel sounds present. Due to her history, an extensive work-up was performed. Labs reveal no leukocytosis. She is not significantly anemic. Electrolytes were fairly unremarkable. She did appear slightly dehydrated with an elevated BUN. CT scan was consistent with a bowel obstruction. For this reason, I believe patient likely needs inpatient management. Patient family was in agreement. Impression & Plan Vomiting Discharge Plan Visit Data Chief Complaint: GI Assessment Stated Complaint: VOMITING, LOOSING APETITE, NO FULL BOWEL MOVE. ED Provider: Donald Glaser ED Midlevel Provider: Flakita Fernandez Discharge Problem: Vomiting Patient Disposition: Home - Self-Care Discharge Instructions Interventions: ED Discharge Assessment Last Done: 09/30/21 21:54
== END 2021-10-05 19:34 | disposition home or self-care (01) | DRG 390 ==
LOC: ED 13:30 → 3N 19:56 → SUATTDRO 19:56 → 3N 21:54